=== PATIENT | male | born 1980 | race African-American/Black ===

== ENCOUNTER 2016-07-28 09:42 | Emergency (ER) | payer SELFPAY ==
[~2016-07-28] VITALS: Ht 180.3 cm; Wt 63.5 kg
--- NOTE | 2016-07-28 10:19 | PHYS DOC ---
Past Medical History Past Medical History: No Pertinent History Past Surgical History: No Surgical History Alcohol Use: Rarely Drug Use: None Adult General Chief Complaint Chief Complaint: ABDOMINAL PAIN HPI HPI Patient is a 36 year old male presenting to the emergency department for evaluation of diffuse upper abdominal pain that has been going on for approximately one week. As it causes him nonbloody nonbilious emesis but he has been having normal bowel movements. He denies any dysuria hematuria or testicular pain. Pain is sharp and achy and is worse after eating and drinking and says he has a difficult time holding anything down said he has basically not been eating much for the past several days. He feels diffusely weak with low energy. Patient admits that he drinks alcohol daily approximately 6 beers a day and smokes cigarettes as well but does not use any drugs. Patient denies any prior abdominal surgeries. Review of Systems Review of Systems Constitutional: Denies fever or chills [] Eyes: Denies change in visual acuity, redness, or eye pain [] HENT: Denies nasal congestion or sore throat [] Respiratory: Denies cough or shortness of breath [] Cardiovascular: No additional information not addressed in HPI [] GI: + abdominal pain, nausea, vomiting. No bloody stools or diarrhea [] : Denies dysuria or hematuria [] Musculoskeletal: Denies back pain or joint pain [] Integument: Denies rash or skin lesions [] Neurologic: Denies headache, focal weakness or sensory changes [] Current Medications Current Medications Current Medications Medications (Trade) Dose Ordered Sig/Will Start Time Stop Time Status Last Admin Dose Admin Info (Do NOT chart on this entry -- for MONITORING) 1 each PRN DAILY PRN 07/28/16 11:00 07/30/16 10:59 Iohexol (Omnipaque 300 Mg/ml) 75 ml 1X ONCE 07/28/16 11:00 07/28/16 11:01 DC 07/28/16 11:17 75 ML Morphine Sulfate 5 mg 1X ONCE 07/28/16 10:30 07/28/16 10:31 DC 07/28/16 10:31 5 MG Multi-Ingredient Mouthwash/Gargle (Gi Cocktail Single Dose) 15 ml 1X ONCE 07/28/16 10:30 07/28/16 10:31 DC 07/28/16 10:31 15 ML Ondansetron HCl (Zofran) 8 mg 1X ONCE 07/28/16 10:30 07/28/16 10:31 DC 07/28/16 10:30 8 MG Pantoprazole Sodium (Protonix Vial) 40 mg 1X ONCE 07/28/16 10:30 07/28/16 10:31 DC 07/28/16 10:31 40 MG Sodium Chloride 1,000 ml @ 1,000 mls/hr 1X ONCE 07/28/16 10:30 07/28/16 11:29 DC 07/28/16 10:31 1,000 MLS/HR Allergies Allergies Allergies Coded Allergies Type Severity Reaction Last Updated Verified No Known Drug Allergies 07/21/14 No Physical Exam Physical Exam Constitutional: Well developed, well nourished, no acute distress, non-toxic appearance. [] HENT: Normocephalic, atraumatic, bilateral external ears normal, oropharynx moist, no oral exudates, nose normal. [] Eyes: PERRLA, EOMI, conjunctiva injected, no discharge. [] Neck: Normal range of motion, no tenderness, supple, no stridor. [] Cardiovascular:Heart rate regular rhythm, no murmur [] Lungs & Thorax: Bilateral breath sounds clear to auscultation [] Abdomen: Bowel sounds normal, soft, RUQ, epigastric, and LUQ tenderness, no rebound or guarding, no masses, no pulsatile masses. [] Skin: Warm, dry, no erythema, no rash. [] Back: No tenderness, no CVA tenderness. [] Extremities: No tenderness, no cyanosis, no clubbing, ROM intact, no edema. [] Neurologic: Alert and oriented X 3, normal motor function, normal sensory function, no focal deficits noted. [] Current Patient Data Vital Signs Vital Signs Date Time Temp Pulse Resp B/P (MAP) Pulse Ox O2 Delivery O2 Flow Rate FiO2 07/28/16 11:30 57 18 123/78 (93) 98 Room Air 07/28/16 10:00 98.5 98.5 Lab Values Laboratory Tests Test 07/28/16 10:15 07/28/16 10:30 White Blood Count 5.8 x10^3/uL (4.0-11.0) Red Blood Count 4.93 x10^6/uL (4.30-5.70) Hemoglobin 15.5 g/dL (13.0-17.5) Hematocrit 43.9 % (39.0-53.0) Mean Corpuscular Volume 89 fL (79-100) Mean Corpuscular Hemoglobin 31 pg (25-35) Mean Corpuscular Hemoglobin Concent 35 g/dL (31-37) Red Cell Distribution Width 13.2 % (11.5-14.5) Platelet Count 194 x10^3/uL (140-400) Neutrophils (%) (Auto) 60 % (31-73) Lymphocytes (%) (Auto) 31 % (24-48) Monocytes (%) (Auto) 8 % (0-9) Eosinophils (%) (Auto) 1 % (0-3) Basophils (%) (Auto) 1 % (0-3) Neutrophils # (Auto) 3.5 x10^3uL (1.8-7.7) Lymphocytes # (Auto) 1.8 x10^3/uL (1.0-4.8) Monocytes # (Auto) 0.4 x10^3/uL (0.0-1.1) Eosinophils # (Auto) 0.1 x10^3/uL (0.0-0.7) Basophils # (Auto) 0.0 x10^3/uL (0.0-0.2) Sodium Level 139 mmol/L (136-145) Potassium Level 3.8 mmol/L (3.5-5.1) Chloride Level 104 mmol/L (98-107) Carbon Dioxide Level 29 mmol/L (21-32) Anion Gap 6 (6-14) Blood Urea Nitrogen 12 mg/dL (8-26) Creatinine 1.1 mg/dL (0.7-1.3) Estimated GFR (Cockcroft-Gault) 91.1 BUN/Creatinine Ratio 11 (6-20) Glucose Level 107 mg/dL (70-99) H Calcium Level 8.5 mg/dL (8.5-10.1) Magnesium Level 1.8 mg/dL (1.8-2.4) Total Bilirubin 1.8 mg/dL (0.2-1.0) H Aspartate Amino Transferase (AST) 25 U/L (15-37) Alanine Aminotransferase (ALT) 15 U/L (16-63) L Alkaline Phosphatase 67 U/L (46-116) Creatine Kinase 137 U/L (39-308) Total Protein 6.7 g/dL (6.4-8.2) Albumin 3.7 g/dL (3.4-5.0) Albumin/Globulin Ratio 1.2 (1.0-1.7) Lipase 64 U/L (73-393) L Ethyl Alcohol Level < 10 mg/dL (0-10) Urine Collection Type Unknown Urine Color Yellow Urine Clarity Cloudy Urine pH 8.5 Urine Specific [place] 1.025 Urine Protein Negative mg/dL (NEG-TRACE) Urine Glucose (UA) Negative mg/dL (NEG) Urine Ketones (Stick) Negative mg/dL (NEG) Urine Blood Negative (NEG) Urine Nitrite Negative (NEG) Urine Bilirubin Negative (NEG) Urine Urobilinogen Dipstick 1.0 mg/dL (0.2 mg/dL) Urine Leukocyte Esterase Negative (NEG) Urine RBC Rare /HPF (0-2) Urine WBC Occ /HPF (0-4) Urine Squamous Epithelial Cells Occ /LPF Urine Bacteria Few /HPF (0-FEW) Urine Mucus Slight /LPF Urine Opiates Screen Neg (NEG) Urine Methadone Screen Neg (NEG) Urine Barbiturates Neg (NEG) Urine Phencyclidine Screen Neg (NEG) Urine Amphetamine/Methamphetamine Neg (NEG) Urine Benzodiazepines Screen Neg (NEG) Urine Cocaine Screen Neg (NEG) Urine Cannabinoids Screen Pos (NEG) Urine Ethyl Alcohol Neg (NEG) Laboratory Tests 07/28/16 10:15 Laboratory Tests 07/28/16 10:15 EKG EKG [] Radiology/Procedures Radiology/Procedures CT scan of the abdomen and pelvis with contrast 07/28/2016 Clinical history: Epigastric pain. Technique: After the intravenous administration of 75 cc of Omnipaque 300, contiguous, 5 mm axial sections were obtained through the abdomen and pelvis. One or more of the following individualized dose reduction techniques were utilized for this study: 1. Automated exposure control. 2. Adjustment of the mA and/or kV according to patient size. 3. Use of iterative reconstruction technique. Findings: Comparison study is dated 07/24/2015. Images through the lung bases are within normal limits. The liver, spleen, pancreas, adrenal glands and right kidney are within normal limits. An oval-shaped low-attenuation structure is seen involving the mid/lower pole of the left kidney. This measures 4.4 cm in size. It likely represents a cyst. The abdominal aorta tapers normally. The gallbladder is well-distended. No free fluid or free air is seen within the abdomen. The appendix is well-visualized and is within normal limits. Images through the pelvis demonstrate the urinary bladder to be contracted. No free fluid is seen. Calcifications are seen within the pelvis consistent with phleboliths. The osseous structures are grossly intact. Impression: No acute abnormality is seen. DICTATED and SIGNED BY: ZION DURAN MD DATE: 07/28/16 1143 Course & Med Decision Making Course & Med Decision Making Most likely diagnosis is alcoholic gastritis however pancreatitis cholecystitis or other surgical causes need to be entertained so he will get labs CT symptoms treated and then reassessed. Patient's labs are unremarkable except for mildly elevated bilirubin of unknown significance. ET does not show any acute surgical pathology and patient appears well with repeat normal vital signs and physical exam. Given patient appears well with normal vital signs benign exam and he is asking to go home and tolerating by mouth fluids he'll be discharged with supportive treatment including Prilosec and [place] Zofran and PCP with GI follow-up. Patient aware and agreeable with plan for DC and verbalized understanding of the need for follow-up in the strict ER return precautions discussed worsening pain fevers vomiting or other general concerns. Dragon Disclaimer Dragon Disclaimer This electronic medical record was generated, in whole or in part, using a voice recognition dictation system. Departure Departure Impression: Primary Impression: Abdominal pain Additional Impression: Gastritis Disposition: 01 HOME, SELF-CARE Condition: GOOD Referrals: RODOLFO BOJORQUEZ MD Patient Instructions: Gastritis, Adult Additional Instructions: Drink plenty of water and Gatorade. He can use Tums and Maalox for breakthrough symptoms. Come back to the ER with any new or worsening symptoms and follow with a primary care provider and GI doctor as soon as he can. Scripts Omeprazole Magnesium (PRILOSEC OTC) 20 Mg Tablet. 1 TAB PO DAILY, #30 TAB 2 Refills Prov: NAY OLSON DO 07/28/16 Ondansetron (ZOFRAN ODT) 4 Mg Tab.rapdis 4 MG PO BID Y for NAUSEA/VOMITING, #14 TAB Prov: NAY OLSON DO 07/28/16 Hydrocodone/Apap 5-325 (NORCO 5-325 TABLET) 1 Each Tablet 1 TAB PO PRN Q6HRS Y for PAIN, #20 TAB 0 Refills Prov: NAY OLSON DO 07/28/16 Problem Qualifiers Primary Impression: Abdominal pain Abdominal location: epigastric Qualified Codes: R10.13 - Epigastric pain NAY OLSON DO Jul 28, 2016 10:19
[2016-07-28 10:29] LABS: BASO % 1 % (0-3); EOS % 1 % (0-3); HEMATOCRIT 43.9 % (39.0-53.0); HEMOGLOBIN 15.5 g/dL (13.0-17.5); LYMPH # 1.8 x10^3/uL (1.0-4.8); LYMPH % 31 % (24-48); MEAN CORPUSCULAR HEMOGLOBIN 31 pg (25-35); MEAN CORPUSCULAR HGB CONC 35 g/dL (31-37); MEAN CORPUSCULAR VOLUME 89 fL (79-100); MONO % 8 % (0-9); NEUT % 60 % (31-73); PLATELET COUNT 194 x10^3/uL (140-400); RED BLOOD COUNT 4.93 x10^6/uL (4.30-5.70); RED CELL DISTRIBUTION WIDTH 13.2 % (11.5-14.5); WHITE BLOOD COUNT 5.8 x10^3/uL (4.0-11.0)
[2016-07-28] MEDS ORDERED: PANTOPRAZOLE IV PUSH 40 MG VIAL. IVP ONE (10:30)
[2016-07-28] MEDS ORDERED: IV NORMAL SALINE 1000ML BAG 1,000 ML IV ONE (10:30)
[2016-07-28] MEDS ORDERED: LIDO:MAALOX:DONNATAL 1:1:1 15 ML SINGLE DOSE SWSW ONE (10:30)
[2016-07-28] MEDS ORDERED: ONDANSETRON PF 4 MG/2 ML VIAL. IV ONE (10:30)
[2016-07-28] MEDS ORDERED: MORPHINE SULFATE 10 MG/ML VIAL. IV ONE (10:30)
[2016-07-28 10:45] LABS: BILIRUBIN,URINE NEGATIVE (NEG); GLUCOSE,URINE NEGATIVE (NEG); NITRITE,URINE NEGATIVE (NEG); PH,URINE 8.5; PROTEIN,URINE NEGATIVE (NEG-TRACE)
[2016-07-28 10:47] LABS: CALCIUM 8.5 mg/dL (8.5-10.1); CREATININE 1.1 mg/dL (0.7-1.3); GFR 91.1; POTASSIUM 3.8 mmol/L (3.5-5.1)
[2016-07-28 11:00] LABS: ALBUMIN 3.7 g/dL (3.4-5.0); ALBUMIN/GLOBULIN RATIO 1.2 (1.0-1.7); MAGNESIUM 1.8 mg/dL (1.8-2.4); TOTAL BILIRUBIN 1.8 mg/dL (0.2-1.0); TOTAL PROTEIN 6.7 g/dL (6.4-8.2)
[2016-07-28] MEDS ORDERED: IOHEXOL 300 MG/ML 75 ML VIAL IV ONE (11:00)
[2016-07-28] MEDS ORDERED: CONTRAST GIVEN MC PRN (11:00)
[2016-07-28 11:08] LABS: BACTERIA,URINE FEW /HPF (0-FEW); RBC,URINE RARE /HPF (0-2); SQUAMOUS EPITHELIAL CELL,UR OCC /LPF; WBC,URINE OCC /HPF (0-4)
[2016-07-28 11:16] LABS: BARBITURATES NEG (NEG); BENZODIAZEPINES NEG (NEG); CANNABINOIDS POS (NEG); COCAINE NEG (NEG); METHADONE NEG (NEG); OPIATES NEG (NEG); PHENCYCLIDINE NEG (NEG)
--- NOTE | 2016-07-28 11:56 | RAD ---
CT scan of the abdomen and pelvis with contrast 07/28/2016 Clinical history: Epigastric pain. Technique: After the intravenous administration of 75 cc of Omnipaque 300, contiguous, 5 mm axial sections were obtained through the abdomen and pelvis. One or more of the following individualized dose reduction techniques were utilized for this study: 1. Automated exposure control. 2. Adjustment of the mA and/or kV according to patient size. 3. Use of iterative reconstruction technique. Findings: Comparison study is dated 07/24/2015. Images through the lung bases are within normal limits. The liver, spleen, pancreas, adrenal glands and right kidney are within normal limits. An oval-shaped low-attenuation structure is seen involving the mid/lower pole of the left kidney. This measures 4.4 cm in size. It likely represents a cyst. The abdominal aorta tapers normally. The gallbladder is well-distended. No free fluid or free air is seen within the abdomen. The appendix is well-visualized and is within normal limits. Images through the pelvis demonstrate the urinary bladder to be contracted. No free fluid is seen. Calcifications are seen within the pelvis consistent with phleboliths. The osseous structures are grossly intact. Impression: No acute abnormality is seen.
[2016-07-28 11:57] VITALS: BP 119/77
[2016-07-28] MEDS ORDERED: HYDR-971 PO (12:10)
[2016-07-28] MEDS ORDERED: OMEP20TA63 PO (12:10)
[2016-07-28] MEDS ORDERED: ONDA4TAB10 PO (12:10)
== END 2016-07-28 12:15 | disposition home or self-care (01) ==
LOC: ER 09:45
DX: K29.70 Gastritis, unspecified, without bleeding (principal); F17.210 Nicotine dependence, cigarettes, uncomplicated; F10.10 Alcohol abuse, uncomplicated
CPT/HCPCS: 36415; 74177; 80053; 80305; 80320; 81001; 82550; 83690; 83735; 85027; 96361; 96374; 96375; 99285; C9113; J2270; J2405; J7030; Q9967; G0480; G0481

== ENCOUNTER 2017-11-01 08:23 | Inpatient (IN) | payer SELFPAY ==
[~2017-11-01] VITALS: Ht 180.3 cm; Wt 63.5 kg
[~2017-11-01 08:23] MED LIST: HYDR-971 PO; OMEP20TA63 PO; ONDA4TAB10 PO
[2017-11-01] MEDS ORDERED: MORPHINE SULFATE 4 MG/ML VIAL. IV ONE ×2 (09:00→10:30)
[2017-11-01] MEDS ORDERED: IV NORMAL SALINE 1000ML BAG 1,000 ML IV ONE (09:00)
--- NOTE | 2017-11-01 09:04 | PHYS DOC ---
Past Medical History Past Medical History: No Pertinent History Past Surgical History: No Surgical History Alcohol Use: Rarely Drug Use: None Adult General Chief Complaint Chief Complaint: INSECT BITE HPI HPI 37-year-old male presents to ER with 2 day history of left-sided testicular and scrotal pain with swelling. Patient has concerns of possible insect bite denying finding any insect. Patient reports he has had a fever denying checking his temperature. He denies any penile discharge or urinary symptoms. Denies previous STDs or infections. Patient reports symptoms have been gradually worsening and he has been taking Tylenol for pain with minimal relief. Patient reports generalized fatigue. Patient reports at times when pain increases he has been having intermittent chest pain denying any shortness of air or palpitations. Review of Systems Review of Systems Constitutional: Reports fever and chills. Reports generalized fatigue Eyes: Denies change in visual acuity, redness, or eye pain [] HENT: Denies nasal congestion or sore throat [] Respiratory: Denies cough or shortness of breath [] Cardiovascular: Reports intermittent chest pain. Denies palpitations GI: Denies abdominal pain, nausea, vomiting, bloody stools or diarrhea [] : Denies dysuria or hematuria. Reports left testicular and scrotal pain with swelling. Reports pain and swelling radiates into left groin Musculoskeletal: Denies back pain or joint pain [] Integument: Reports small sores lt side scrotum-- denies drainage Neurologic: Denies headache, focal weakness or sensory changes [] All other systems were reviewed and found to be within normal limits, except as documented in this note. Current Medications Current Medications Current Medications Medications (Trade) Dose Ordered Sig/Will Start Time Stop Time Status Last Admin Dose Admin Morphine Sulfate (Morphine Sulfate) 4 mg PRN Q2HR PRN 11/01/17 11:45 11/02/17 11:44 Ondansetron HCl (Zofran) 4 mg PRN Q8HRS PRN 11/01/17 11:45 11/02/17 11:44 Piperacillin Sod/ Tazobactam Sod 3.375 gm/Sodium Chloride 50 ml @ 100 mls/hr 1X ONCE 11/01/17 10:15 11/01/17 10:44 DC 11/01/17 10:39 100 MLS/HR Sodium Chloride 1,000 ml @ 1,000 mls/hr 1X ONCE 11/01/17 09:00 11/01/17 09:59 DC 11/01/17 09:48 1,000 MLS/HR Allergies Allergies Allergies Coded Allergies Type Severity Reaction Last Updated Verified No Known Drug Allergies 07/21/14 No Physical Exam Physical Exam Constitutional: Well developed, well nourished, no acute distress, non-toxic appearance. [] HENT: Normocephalic, atraumatic, bilateral external ears normal, oropharynx moist, no oral exudates, nose normal. [] Eyes: PERRLA, EOMI, conjunctiva normal, no discharge. [] Neck: Normal range of motion, no tenderness, supple, no stridor. [] Cardiovascular:Heart rate regular rhythm, no murmur [] Lungs & Thorax: Bilateral breath sounds clear to auscultation [] Abdomen: Bowel sounds normal, soft, no tenderness, no masses, no pulsatile masses. [] Skin: Warm, dry, no erythema, no rash. [] Back: No tenderness, no CVA tenderness. [] Extremities: No tenderness, no cyanosis, no clubbing, ROM intact, no edema. [] Neurologic: Alert and oriented X 3, normal motor function, normal sensory function, no focal deficits noted. [] Psychologic: Affect normal, judgement normal, mood normal. [] Current Patient Data Vital Signs Vital Signs Date Time Temp Pulse Resp B/P (MAP) Pulse Ox O2 Delivery O2 Flow Rate FiO2 11/01/17 09:39 99 Room Air 11/01/17 08:45 99.8 95 20 130/65 (86) 99.8 Lab Values Laboratory Tests Test 11/01/17 09:00 White Blood Count 14.0 x10^3/uL (4.0-11.0) H Red Blood Count 4.94 x10^6/uL (4.30-5.70) Hemoglobin 15.4 g/dL (13.0-17.5) Hematocrit 43.7 % (39.0-53.0) Mean Corpuscular Volume 88 fL (79-100) Mean Corpuscular Hemoglobin 31 pg (25-35) Mean Corpuscular Hemoglobin Concent 35 g/dL (31-37) Red Cell Distribution Width 13.1 % (11.5-14.5) Platelet Count 170 x10^3/uL (140-400) Neutrophils (%) (Auto) 79 % (31-73) H Lymphocytes (%) (Auto) 10 % (24-48) L Monocytes (%) (Auto) 10 % (0-9) H Eosinophils (%) (Auto) 1 % (0-3) Basophils (%) (Auto) 1 % (0-3) Neutrophils # (Auto) 11.1 x10^3uL (1.8-7.7) H Lymphocytes # (Auto) 1.3 x10^3/uL (1.0-4.8) Monocytes # (Auto) 1.4 x10^3/uL (0.0-1.1) H Eosinophils # (Auto) 0.2 x10^3/uL (0.0-0.7) Basophils # (Auto) 0.1 x10^3/uL (0.0-0.2) Sodium Level 138 mmol/L (136-145) Potassium Level 4.0 mmol/L (3.5-5.1) Chloride Level 100 mmol/L (98-107) Carbon Dioxide Level 27 mmol/L (21-32) Anion Gap 11 (6-14) Blood Urea Nitrogen 13 mg/dL (8-26) Creatinine 1.0 mg/dL (0.7-1.3) Estimated GFR (Cockcroft-Gault) 101.2 BUN/Creatinine Ratio 13 (6-20) Glucose Level 93 mg/dL (70-99) Lactic Acid Level 0.5 mmol/L (0.4-2.0) Calcium Level 8.6 mg/dL (8.5-10.1) Magnesium Level 1.9 mg/dL (1.8-2.4) Total Bilirubin 1.9 mg/dL (0.2-1.0) H Aspartate Amino Transferase (AST) 17 U/L (15-37) Alanine Aminotransferase (ALT) 15 U/L (16-63) L Alkaline Phosphatase 105 U/L (46-116) Troponin I Quantitative < 0.017 ng/mL (0.000-0.055) Total Protein 7.3 g/dL (6.4-8.2) Albumin 3.9 g/dL (3.4-5.0) Albumin/Globulin Ratio 1.1 (1.0-1.7) Laboratory Tests 11/01/17 09:00 Laboratory Tests 11/01/17 09:00 EKG EKG [] Radiology/Procedures Radiology/Procedures [] Course & Med Decision Making Course & Med Decision Making Pertinent Labs and Imaging studies reviewed. (See chart for details) [] Dragon Disclaimer Dragon Disclaimer This electronic medical record was generated, in whole or in part, using a voice recognition dictation system. Departure Departure Impression: Primary Impression: Left hydrocele Additional Impression: Swelling of scrotum Disposition: ADMITTED INPATIENT Admitting Physician: Alxea Anna Referrals: NO PCP (PCP) Problem Qualifiers LEON GUEVARA [employer]PER[employer] Nov 01, 2017 09:04
[2017-11-01 09:14] LABS: BASO # 0.1 x10^3/uL (0.0-0.2); BASO % 1 % (0-3); EOS # 0.2 x10^3/uL (0.0-0.7); EOS % 1 % (0-3); HEMATOCRIT 43.7 % (39.0-53.0); HEMOGLOBIN 15.4 g/dL (13.0-17.5); LYMPH # 1.3 x10^3/uL (1.0-4.8); LYMPH % 10 % (24-48); MEAN CORPUSCULAR HEMOGLOBIN 31 pg (25-35); MEAN CORPUSCULAR HGB CONC 35 g/dL (31-37); MEAN CORPUSCULAR VOLUME 88 fL (79-100); MONO # 1.4 x10^3/uL (0.0-1.1); MONO % 10 % (0-9); NEUT # 11.1 x10^3uL (1.8-7.7); NEUT % 79 % (31-73); PLATELET COUNT 170 x10^3/uL (140-400); RED BLOOD COUNT 4.94 x10^6/uL (4.30-5.70); RED CELL DISTRIBUTION WIDTH 13.1 % (11.5-14.5)
[2017-11-01 09:29] LABS: CALCIUM 8.6 mg/dL (8.5-10.1); GFR 101.2
[2017-11-01] MEDS ORDERED: ONDANSETRON PF 4 MG/2 ML VIAL. IV ONE (09:30)
--- NOTE | 2017-11-01 09:35 | RAD ---
Scrotal ultrasound, 11/01/2017: HISTORY: Left testicular/groin pain, possible spider bite The right testicle measures 4.9 x 3.8 x 3.1 cm while the left testicle measures 4.6 x 3.0 x 2.5 cm. No testicular mass is seen. Symmetric blood flow is present within the testicles. No epididymal abnormality is seen. There is a small left hydrocele. The scrotal wall is thickened, primarily on the left. No abnormal focal fluid collection is seen. At the left groin level there is an enlarged 2.7 x 1.3 x 1.36 cm lymph node which demonstrates hyperemia. IMPRESSION: 1. No testicular abnormality is detected. 2. Small left hydrocele. 3. Left scrotal wall thickening. 4. Mildly enlarged hyperemic left inguinal lymph node.The findings suggest a local inflammatory process such as cellulitis, perhaps related to the history of an insect bite. Electronically signed by: Ghassan Sawyer MD (11/01/2017 9:32 AM) [facility]
--- NOTE | 2017-11-01 09:39 | EKG ---
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
[2017-11-01 09:42] LABS: ALBUMIN 3.9 g/dL (3.4-5.0); ALBUMIN/GLOBULIN RATIO 1.1 (1.0-1.7); MAGNESIUM 1.9 mg/dL (1.8-2.4); TOTAL BILIRUBIN 1.9 mg/dL (0.2-1.0); TOTAL PROTEIN 7.3 g/dL (6.4-8.2)
[2017-11-01] MEDS ORDERED: PIPERACILLIN/TAZOBACTAM 3.375 GM in IV NORMAL SALINE 50ML 50 ML IV ONE (10:15)
[2017-11-01 11:37] LABS: BILIRUBIN,URINE NEGATIVE (NEG); CLARITY,URINE CLEAR; COLOR,URINE YELLOW; NITRITE,URINE NEGATIVE (NEG); PH,URINE 6.5; PROTEIN,URINE NEGATIVE (NEG-TRACE)
[2017-11-01] MEDS ORDERED: ONDANSETRON PF 4 MG/2 ML VIAL. IV PRN ×2 (11:45→12:00)
[2017-11-01] MEDS ORDERED: MORPHINE SULFATE 4 MG/ML VIAL. IV PRN (11:45)
[2017-11-01 11:47] LABS: SQUAMOUS EPITHELIAL CELL,UR FEW /LPF
[2017-11-01 11:49] LABS: BACTERIA,URINE FEW /HPF (0-FEW)
[2017-11-01 11:51] LABS: TRICHOMONAS,URINE PRESENT
[2017-11-01] MEDS ORDERED: PIP/TAZO PER PHARMACY MC PRN (12:00)
[2017-11-01] MEDS ORDERED: ACETAMINOPHEN 500 MG TABLET PO PRN (12:00)
[2017-11-01] MEDS ORDERED: ONDANSETRON ODT 4 MG TAB.RAPDIS. PO PRN (12:15)
[2017-11-01] MEDS: NAPROXEN 500 MG TABLET PO SCH ×2 (12:56→21:12)
[2017-11-01] MEDS: oxyCODONE/APAP 5/325 1 TAB TABLET PO PRN ×3 (12:56→21:12)
--- NOTE | 2017-11-01 13:07 | PDOC1 ---
History and Physical Date of Admission Date of Admission DATE: 11/01/17 TIME: 13:02 Identification/Chief Complaint Chief Complaint scrotal pain and swelling Source Source: Caregiver, Chart review, Patient History of Present Illness History of Present Illness 37-year-old male with no past medical history, does not take any meds at home, no previous surgery, no known drug allergies, nonsmoker nonalcohol drinker, denies recreational drugs, 4-5 day history of scrotal pain and swelling, very tender to touch just on mild exam or mild elevation / palpation. Ultrasound shows below 1. No testicular abnormality is detected. 2. Small left hydrocele. 3. Left scrotal wall thickening. 4. Mildly enlarged hyperemic left inguinal lymph node.The findings suggest a local inflammatory process such as cellulitis, perhaps related to the history of an insect bite. Subjective fevers at home, WBC 14, low-grade temperature at the emergency room. Discussed with urology, no urologic interventions IV antibiotics, we did consult ID and ESR is pending Total bili is 1.9, patient denies any abdominal pain Past Medical History Cardiovascular: No pertinent hx Pulmonary: No pertinent hx GI: No pertinent hx Heme/Onc: No pertinent hx Hepatobiliary: No pertinent hx Psych: No pertinent hx Rheumatologic: No pertinent hx Infectious disease: No pertinent hx ENT: No pertinent hx Renal/: No pertinent hx Endocrine: No pertinent hx Dermatology: No pertinent hx Past Surgical History Past Surgical History: No pertinent history Family History Family History: No Significant Social History Smoke: No ALCOHOL: none Drugs: None Current Problem List Problem List Problems Medical Problems: (1) Left hydrocele Status: Acute (2) Swelling of scrotum Status: Acute Current Medications Current Medications Current Medications Sodium Chloride 1,000 ml @ 1,000 mls/hr 1X ONCE IV Last administered on at 09:48; Start 11/01/17 at 09:00; Stop 11/01/17 at 09:59; Status DC Morphine Sulfate (Morphine Sulfate) 4 mg 1X ONCE IV Last administered on at 09:39; Start 11/01/17 at 09:00; Stop 11/01/17 at 09:01; Status DC Ondansetron HCl (Zofran) 4 mg 1X ONCE IV Last administered on 11/01/17at 09:40 ; Start 11/01/17 at 09:30; Stop 11/01/17 at 09:31; Status DC Piperacillin Sod/ Tazobactam Sod 3.375 gm/Sodium Chloride 50 ml @ 100 mls/hr 1X ONCE IV Last administered on 11/01/17at 10:39; Start 11/01/17 at 10:15; Stop 11/01/17 at 10:44; Status DC Morphine Sulfate (Morphine Sulfate) 4 mg 1X ONCE IV Last administered on at 12:30; Start 11/01/17 at 10:30; Stop 11/01/17 at 10:31; Status DC Ondansetron HCl (Zofran) 4 mg PRN Q8HRS PRN IV NAUSEA/VOMITING; Start 11/01/17 at 11:45; Stop 11/01/17 at 12:01; Status DC Morphine Sulfate (Morphine Sulfate) 4 mg PRN Q2HR PRN IV PAIN; Start 11/01/17 at 11:45; Stop 11/02/17 at 11:44 Ondansetron HCl (Zofran) 4 mg PRN Q6HRS PRN IV NAUSEA/VOMITING; Start 11/01/17 at 12:00 Piperacillin Sod/ Tazobactam Sod (Zosyn Per Pharmacy) 1 each PRN DAILY PRN [facility] SEE COMMENTS; Start 11/01/17 at 12:00; Status UNV Oxycodone/ Acetaminophen (Percocet 5/325) 1 tab PRN Q4HRS PRN PO SEVERE PAIN; Start 11/01/17 at 12:00 Acetaminophen (Tylenol) 500 mg PRN Q6HRS PRN PO MILD PAIN / TEMP; Start at 12:00 Naproxen (Naprosyn) 500 mg BID PO ; Start 11/01/17 at 12:00 Acetaminophen/ Hydrocodone Bitart (Lortab 5/325) 1 tab PRN Q6HRS PRN PO MODERATE PAIN; Start 11/01/17 at 12:15 Ondansetron HCl (Zofran Odt) 4 mg BID PRN PO NAUSEA/VOMITING; Start 11/01/17 at 12:15 Pantoprazole Sodium (Protonix) 40 mg DAILYAC PO ; Start 11/02/17 at 07:30 Piperacillin Sod/ Tazobactam Sod 3.375 gm/Sodium Chloride 50 ml @ 100 mls/hr Q6HRS IV ; Start 11/01/17 at 18:00 Active Scripts Active Prilosec Otc (Omeprazole Magnesium) 20 Mg Tablet.dr 1 Tab PO DAILY Zofran Odt (Ondansetron) 4 Mg Tab.rapdis 4 Mg PO BID PRN [place] 5-325 Tablet (Acetaminophen/Hydrocodone Bitart) 1 Each Tablet 1 Tab PO PRN Q6HRS PRN Allergies Allergies: Coded Allergies: No Known Drug Allergies (Unverified , 07/21/14) ROS Review of System As per history of present illness, the rest of ROS 14 point is negative Physical Exam General: Alert, Oriented X3, Cooperative, No acute distress HEENT: Atraumatic, PERRLA, EOMI Lungs: Clear to auscultation, Normal air movement Heart: S1S2, RRR, no thrills, no rubs, no gallops, no murmurs Cardiovascular: S1, S2 Abdomen: Normal bowel sounds, Soft, No tenderness, No hepatosplenomegaly, No masses Male Genitals Exam: other (scrotum is enlarged, hard to appreciate redness because of skin color but significant pain on mild palpation or attempted to elevate the scrotumOpen no open skin lesionsSome thickened or induration skin around the area) Rectal Exam: not examined PELVIC: Nml ext genitalia Extremities: No clubbing, No cyanosis, No edema, Normal pulses, No tenderness/ swelling Skin: No rashes, No breakdown, No significant lesion Neuro: Normal gait, Normal speech, Strength at 5/5 X4 ext, Normal tone, Sensation intact, Cranial nerves 3-12 NL, Reflexes 2+ Psych/Mental Status: Mental status NL, Mood NL Vitals Vitals Vital Signs Date Time Temp Pulse Resp B/P (MAP) Pulse Ox O2 Delivery O2 Flow Rate FiO2 11/01/17 12:30 99 11/01/17 09:39 Room Air 11/01/17 08:45 99.8 95 20 130/65 (86) 99.8 Labs Labs Laboratory Tests Test 11/01/17 09:00 11/01/17 10:30 White Blood Count 14.0 x10^3/uL (4.0-11.0) Red Blood Count 4.94 x10^6/uL (4.30-5.70) Hemoglobin 15.4 g/dL (13.0-17.5) Hematocrit 43.7 % (39.0-53.0) Mean Corpuscular Volume 88 fL (79-100) Mean Corpuscular Hemoglobin 31 pg (25-35) Mean Corpuscular Hemoglobin Concent 35 g/dL (31-37) Red Cell Distribution Width 13.1 % (11.5-14.5) Platelet Count 170 x10^3/uL (140-400) Neutrophils (%) (Auto) 79 % (31-73) Lymphocytes (%) (Auto) 10 % (24-48) Monocytes (%) (Auto) 10 % (0-9) Eosinophils (%) (Auto) 1 % (0-3) Basophils (%) (Auto) 1 % (0-3) Neutrophils # (Auto) 11.1 x10^3uL (1.8-7.7) Lymphocytes # (Auto) 1.3 x10^3/uL (1.0-4.8) Monocytes # (Auto) 1.4 x10^3/uL (0.0-1.1) Eosinophils # (Auto) 0.2 x10^3/uL (0.0-0.7) Basophils # (Auto) 0.1 x10^3/uL (0.0-0.2) Sodium Level 138 mmol/L (136-145) Potassium Level 4.0 mmol/L (3.5-5.1) Chloride Level 100 mmol/L (98-107) Carbon Dioxide Level 27 mmol/L (21-32) Anion Gap 11 (6-14) Blood Urea Nitrogen 13 mg/dL (8-26) Creatinine 1.0 mg/dL (0.7-1.3) Estimated GFR (Cockcroft-Gault) 101.2 BUN/Creatinine Ratio 13 (6-20) Glucose Level 93 mg/dL (70-99) Lactic Acid Level 0.5 mmol/L (0.4-2.0) Calcium Level 8.6 mg/dL (8.5-10.1) Magnesium Level 1.9 mg/dL (1.8-2.4) Total Bilirubin 1.9 mg/dL (0.2-1.0) Aspartate Amino Transf (AST/SGOT) 17 U/L (15-37) Alanine Aminotransferase (ALT/SGPT) 15 U/L (16-63) Alkaline Phosphatase 105 U/L (46-116) Troponin I Quantitative < 0.017 ng/mL (0.000-0.055) Total Protein 7.3 g/dL (6.4-8.2) Albumin 3.9 g/dL (3.4-5.0) Albumin/Globulin Ratio 1.1 (1.0-1.7) Urine Collection Type Void Urine Color Yellow Urine Clarity Clear Urine pH 6.5 Urine Specific [place] 1.020 Urine Protein Negative mg/dL (NEG-TRACE) Urine Glucose (UA) Negative mg/dL (NEG) Urine Ketones (Stick) 15 mg/dL (NEG) Urine Blood Negative (NEG) Urine Nitrite Negative (NEG) Urine Bilirubin Negative (NEG) Urine Urobilinogen Dipstick 1.0 mg/dL (0.2 mg/dL) Urine Leukocyte Esterase Negative (NEG) Urine RBC 3-5 /HPF (0-2) Urine WBC 1-4 /HPF (0-4) Urine Squamous Epithelial Cells Few /LPF Urine Bacteria Few /HPF (0-FEW) Urine Mucus Marked /LPF Urine Trichomonas Present Laboratory Tests Test 11/01/17 09:00 11/01/17 10:30 White Blood Count 14.0 x10^3/uL (4.0-11.0) Red Blood Count 4.94 x10^6/uL (4.30-5.70) Hemoglobin 15.4 g/dL (13.0-17.5) Hematocrit 43.7 % (39.0-53.0) Mean Corpuscular Volume 88 fL (79-100) Mean Corpuscular Hemoglobin 31 pg (25-35) Mean Corpuscular Hemoglobin Concent 35 g/dL (31-37) Red Cell Distribution Width 13.1 % (11.5-14.5) Platelet Count 170 x10^3/uL (140-400) Neutrophils (%) (Auto) 79 % (31-73) Lymphocytes (%) (Auto) 10 % (24-48) Monocytes (%) (Auto) 10 % (0-9) Eosinophils (%) (Auto) 1 % (0-3) Basophils (%) (Auto) 1 % (0-3) Neutrophils # (Auto) 11.1 x10^3uL (1.8-7.7) Lymphocytes # (Auto) 1.3 x10^3/uL (1.0-4.8) Monocytes # (Auto) 1.4 x10^3/uL (0.0-1.1) Eosinophils # (Auto) 0.2 x10^3/uL (0.0-0.7) Basophils # (Auto) 0.1 x10^3/uL (0.0-0.2) Sodium Level 138 mmol/L (136-145) Potassium Level 4.0 mmol/L (3.5-5.1) Chloride Level 100 mmol/L (98-107) Carbon Dioxide Level 27 mmol/L (21-32) Anion Gap 11 (6-14) Blood Urea Nitrogen 13 mg/dL (8-26) Creatinine 1.0 mg/dL (0.7-1.3) Estimated GFR (Cockcroft-Gault) 101.2 BUN/Creatinine Ratio 13 (6-20) Glucose Level 93 mg/dL (70-99) Lactic Acid Level 0.5 mmol/L (0.4-2.0) Calcium Level 8.6 mg/dL (8.5-10.1) Magnesium Level 1.9 mg/dL (1.8-2.4) Total Bilirubin 1.9 mg/dL (0.2-1.0) Aspartate Amino Transf (AST/SGOT) 17 U/L (15-37) Alanine Aminotransferase (ALT/SGPT) 15 U/L (16-63) Alkaline Phosphatase 105 U/L (46-116) Troponin I Quantitative < 0.017 ng/mL (0.000-0.055) Total Protein 7.3 g/dL (6.4-8.2) Albumin 3.9 g/dL (3.4-5.0) Albumin/Globulin Ratio 1.1 (1.0-1.7) Urine Collection Type Void Urine Color Yellow Urine Clarity Clear Urine pH 6.5 Urine Specific [place] 1.020 Urine Protein Negative mg/dL (NEG-TRACE) Urine Glucose (UA) Negative mg/dL (NEG) Urine Ketones (Stick) 15 mg/dL (NEG) Urine Blood Negative (NEG) Urine Nitrite Negative (NEG) Urine Bilirubin Negative (NEG) Urine Urobilinogen Dipstick 1.0 mg/dL (0.2 mg/dL) Urine Leukocyte Esterase Negative (NEG) Urine RBC 3-5 /HPF (0-2) Urine WBC 1-4 /HPF (0-4) Urine Squamous Epithelial Cells Few /LPF Urine Bacteria Few /HPF (0-FEW) Urine Mucus Marked /LPF Urine Trichomonas Present VTE Prophylaxis Ordered VTE Prophylaxis Devices: Yes VTE Pharmacological Prophylaxi: Yes Assessment/Plan Assessment/Plan scrotal cellulitis, unlikely gavino's gangrene Small left hydrocele Left scrotal wall thickening Left inguinal lymph node enlargement PLAn: admit 2 MN I Did continue IV Zosyn started at ER Urology consulted ID consulted Monitor the leukocytosis Regular diet, no surgical plans Seen at ER, discussed with mid-level provider MILVIA SMITH MD Nov 01, 2017 13:07
--- NOTE | 2017-11-01 13:10 | PDOC2 ---
UROLOGY CONSULT Date of Consult Date of Consult DATE: 11/01/17 TIME: 12:48 Reason for Consult Reason for Consult: scrotal swelling/pain Source Source: Patient History of Present Illness Reason for Visit: 37 yo M with no significant PMH who presents with progressive worsening scrotal swelling and pain that her first noticed on Thursday. No clear inciting events and has never happened before. Did have a small amount of purulent drainage on Thursday. Endorses chills overnight, but denies fevers, or other complaints. In ED: afebrile, WBC 14, LA 0.5, UA+ for trichomonas, US with thickened left hemiscrotum, small reactive hydrocele, inflamed inguinal lymph node, no drainable fluid collections. Current Medications Current Medications Current Medications Acetaminophen (Tylenol) 500 mg PRN Q6HRS PRN PO MILD PAIN / TEMP; Start at 12:00 Acetaminophen/ Hydrocodone Bitart (Lortab 5/325) 1 tab PRN Q6HRS PRN PO MODERATE PAIN; Start 11/01/17 at 12:15 Morphine Sulfate (Morphine Sulfate) 4 mg 1X ONCE IV Last administered on at 09:39; Start 11/01/17 at 09:00; Stop 11/01/17 at 09:01; Status DC Morphine Sulfate (Morphine Sulfate) 4 mg 1X ONCE IV Last administered on at 12:30; Start 11/01/17 at 10:30; Stop 11/01/17 at 10:31; Status DC Morphine Sulfate (Morphine Sulfate) 4 mg PRN Q2HR PRN IV PAIN; Start 11/01/17 at 11:45; Stop 11/02/17 at 11:44 Naproxen (Naprosyn) 500 mg BID PO ; Start 11/01/17 at 12:00 Ondansetron HCl (Zofran Odt) 4 mg BID PRN PO NAUSEA/VOMITING; Start 11/01/17 at 12:15 Ondansetron HCl (Zofran) 4 mg 1X ONCE IV Last administered on 11/01/17at 09:40 ; Start 11/01/17 at 09:30; Stop 11/01/17 at 09:31; Status DC Ondansetron HCl (Zofran) 4 mg PRN Q6HRS PRN IV NAUSEA/VOMITING; Start 11/01/17 at 12:00 Ondansetron HCl (Zofran) 4 mg PRN Q8HRS PRN IV NAUSEA/VOMITING; Start 11/01/17 at 11:45; Stop 11/01/17 at 12:01; Status DC Oxycodone/ Acetaminophen (Percocet 5/325) 1 tab PRN Q4HRS PRN PO SEVERE PAIN; Start 11/01/17 at 12:00 Pantoprazole Sodium (Protonix) 40 mg DAILYAC PO ; Start 11/02/17 at 07:30 Piperacillin Sod/ Tazobactam Sod (Zosyn Per Pharmacy) 1 each PRN DAILY PRN [facility] SEE COMMENTS; Start 11/01/17 at 12:00; Status UNV Piperacillin Sod/ Tazobactam Sod 3.375 gm/Sodium Chloride 50 ml @ 100 mls/hr 1X ONCE IV Last administered on 11/01/17at 10:39; Start 11/01/17 at 10:15; Stop 11/01/17 at 10:44; Status DC Piperacillin Sod/ Tazobactam Sod 3.375 gm/Sodium Chloride 50 ml @ 100 mls/hr Q6HRS IV ; Start 11/01/17 at 18:00 Sodium Chloride 1,000 ml @ 1,000 mls/hr 1X ONCE IV Last administered on at 09:48; Start 11/01/17 at 09:00; Stop 11/01/17 at 09:59; Status DC Allergies Allergies: Coded Allergies: No Known Drug Allergies (Unverified , 07/21/14) ROS Review Of Systems: Pertinent positives and negatives obtained and included in the HPI Physical Exam Physical Exam: General: Pleasant, no acute distress, well groomed Eyes: conjunctiva anicteric, eyes full range of motion ENT: moist oral mucosa Neck: Trachea midline Respiratory: unlabored breathing, not using accessory muscles Cardiovascular: Normal temperature Abdomen: nontender, nondistended, no masses, enlarged inguinal LN with tenderness Skin: no rashes or skin lesions on visualized skin Psych: normal mood, affect. Alert and oriented x 3. : Circumcised phallus, orthotopic meatus, testes normal to palp, Skin on left hemiscrotum is firm, inflamed and tender. Small crust where drainage was noted. No erythema, crepitus, fluctuance or palpable fluid collections. Vitals VITALS Vital Signs Date Time Temp Pulse Resp B/P (MAP) Pulse Ox O2 Delivery O2 Flow Rate FiO2 11/01/17 12:30 99 11/01/17 09:39 Room Air 11/01/17 08:45 99.8 95 20 130/65 (86) 99.8 Labs Labs Laboratory Tests Test 11/01/17 09:00 11/01/17 10:30 White Blood Count 14.0 x10^3/uL (4.0-11.0) Red Blood Count 4.94 x10^6/uL (4.30-5.70) Hemoglobin 15.4 g/dL (13.0-17.5) Hematocrit 43.7 % (39.0-53.0) Mean Corpuscular Volume 88 fL (79-100) Mean Corpuscular Hemoglobin 31 pg (25-35) Mean Corpuscular Hemoglobin Concent 35 g/dL (31-37) Red Cell Distribution Width 13.1 % (11.5-14.5) Platelet Count 170 x10^3/uL (140-400) Neutrophils (%) (Auto) 79 % (31-73) Lymphocytes (%) (Auto) 10 % (24-48) Monocytes (%) (Auto) 10 % (0-9) Eosinophils (%) (Auto) 1 % (0-3) Basophils (%) (Auto) 1 % (0-3) Neutrophils # (Auto) 11.1 x10^3uL (1.8-7.7) Lymphocytes # (Auto) 1.3 x10^3/uL (1.0-4.8) Monocytes # (Auto) 1.4 x10^3/uL (0.0-1.1) Eosinophils # (Auto) 0.2 x10^3/uL (0.0-0.7) Basophils # (Auto) 0.1 x10^3/uL (0.0-0.2) Sodium Level 138 mmol/L (136-145) Potassium Level 4.0 mmol/L (3.5-5.1) Chloride Level 100 mmol/L (98-107) Carbon Dioxide Level 27 mmol/L (21-32) Anion Gap 11 (6-14) Blood Urea Nitrogen 13 mg/dL (8-26) Creatinine 1.0 mg/dL (0.7-1.3) Estimated GFR (Cockcroft-Gault) 101.2 BUN/Creatinine Ratio 13 (6-20) Glucose Level 93 mg/dL (70-99) Lactic Acid Level 0.5 mmol/L (0.4-2.0) Calcium Level 8.6 mg/dL (8.5-10.1) Magnesium Level 1.9 mg/dL (1.8-2.4) Total Bilirubin 1.9 mg/dL (0.2-1.0) Aspartate Amino Transf (AST/SGOT) 17 U/L (15-37) Alanine Aminotransferase (ALT/SGPT) 15 U/L (16-63) Alkaline Phosphatase 105 U/L (46-116) Troponin I Quantitative < 0.017 ng/mL (0.000-0.055) Total Protein 7.3 g/dL (6.4-8.2) Albumin 3.9 g/dL (3.4-5.0) Albumin/Globulin Ratio 1.1 (1.0-1.7) Urine Collection Type Void Urine Color Yellow Urine Clarity Clear Urine pH 6.5 Urine Specific [place] 1.020 Urine Protein Negative mg/dL (NEG-TRACE) Urine Glucose (UA) Negative mg/dL (NEG) Urine Ketones (Stick) 15 mg/dL (NEG) Urine Blood Negative (NEG) Urine Nitrite Negative (NEG) Urine Bilirubin Negative (NEG) Urine Urobilinogen Dipstick 1.0 mg/dL (0.2 mg/dL) Urine Leukocyte Esterase Negative (NEG) Urine RBC 3-5 /HPF (0-2) Urine WBC 1-4 /HPF (0-4) Urine Squamous Epithelial Cells Few /LPF Urine Bacteria Few /HPF (0-FEW) Urine Mucus Marked /LPF Urine Trichomonas Present Laboratory Tests Test 11/01/17 09:00 11/01/17 10:30 White Blood Count 14.0 x10^3/uL (4.0-11.0) Red Blood Count 4.94 x10^6/uL (4.30-5.70) Hemoglobin 15.4 g/dL (13.0-17.5) Hematocrit 43.7 % (39.0-53.0) Mean Corpuscular Volume 88 fL (79-100) Mean Corpuscular Hemoglobin 31 pg (25-35) Mean Corpuscular Hemoglobin Concent 35 g/dL (31-37) Red Cell Distribution Width 13.1 % (11.5-14.5) Platelet Count 170 x10^3/uL (140-400) Neutrophils (%) (Auto) 79 % (31-73) Lymphocytes (%) (Auto) 10 % (24-48) Monocytes (%) (Auto) 10 % (0-9) Eosinophils (%) (Auto) 1 % (0-3) Basophils (%) (Auto) 1 % (0-3) Neutrophils # (Auto) 11.1 x10^3uL (1.8-7.7) Lymphocytes # (Auto) 1.3 x10^3/uL (1.0-4.8) Monocytes # (Auto) 1.4 x10^3/uL (0.0-1.1) Eosinophils # (Auto) 0.2 x10^3/uL (0.0-0.7) Basophils # (Auto) 0.1 x10^3/uL (0.0-0.2) Sodium Level 138 mmol/L (136-145) Potassium Level 4.0 mmol/L (3.5-5.1) Chloride Level 100 mmol/L (98-107) Carbon Dioxide Level 27 mmol/L (21-32) Anion Gap 11 (6-14) Blood Urea Nitrogen 13 mg/dL (8-26) Creatinine 1.0 mg/dL (0.7-1.3) Estimated GFR (Cockcroft-Gault) 101.2 BUN/Creatinine Ratio 13 (6-20) Glucose Level 93 mg/dL (70-99) Lactic Acid Level 0.5 mmol/L (0.4-2.0) Calcium Level 8.6 mg/dL (8.5-10.1) Magnesium Level 1.9 mg/dL (1.8-2.4) Total Bilirubin 1.9 mg/dL (0.2-1.0) Aspartate Amino Transf (AST/SGOT) 17 U/L (15-37) Alanine Aminotransferase (ALT/SGPT) 15 U/L (16-63) Alkaline Phosphatase 105 U/L (46-116) Troponin I Quantitative < 0.017 ng/mL (0.000-0.055) Total Protein 7.3 g/dL (6.4-8.2) Albumin 3.9 g/dL (3.4-5.0) Albumin/Globulin Ratio 1.1 (1.0-1.7) Urine Collection Type Void Urine Color Yellow Urine Clarity Clear Urine pH 6.5 Urine Specific [place] 1.020 Urine Protein Negative mg/dL (NEG-TRACE) Urine Glucose (UA) Negative mg/dL (NEG) Urine Ketones (Stick) 15 mg/dL (NEG) Urine Blood Negative (NEG) Urine Nitrite Negative (NEG) Urine Bilirubin Negative (NEG) Urine Urobilinogen Dipstick 1.0 mg/dL (0.2 mg/dL) Urine Leukocyte Esterase Negative (NEG) Urine RBC 3-5 /HPF (0-2) Urine WBC 1-4 /HPF (0-4) Urine Squamous Epithelial Cells Few /LPF Urine Bacteria Few /HPF (0-FEW) Urine Mucus Marked /LPF Urine Trichomonas Present Assessment/Plan Assessment/Plan 37 yo M with scrotal abscess, potentially from grooming, that spontaneously drained earlier this week. Has persistent discomfort and swelling from cellulitis. Both PE and US do not identify a drainable fluid collection. Agree with empiric IV abx Recommend a single dose of metronidazole given trichomonas in urine Will continue to observe If no improvement or an abscess delcares itself we discussed bedside I&D He is consenting to the treatment plan MEHDI STALLWORTH MD Nov 01, 2017 13:10
[2017-11-01 15:00] VITALS: BP 116/63
[2017-11-01] MEDS: PIPERACILLIN/TAZOBACTAM 3.375 GM in IV NORMAL SALINE 50ML 50 ML IV SCH (18:21)
[2017-11-01 19:30] VITALS: BP 142/43
--- NOTE | 2017-11-01 22:38 | RAD ---
Abdominal ultrasound Limited: Reason for examination: Elevated total bilirubin of 1.9. No abnormality seen at the pancreas. No abnormality seen at the inferior vena cava. The liver is normal in size at 16.6 cm without a focal lesion. Gallbladder shows no cholelithiasis or sludge and no pericholecystic fluid. Common bile duct is normal in caliber at 2.7 mm. Right kidney measures 12.0 x 4.6 x 5.8 cm in greatest dimension with normal cortical medullary differentiation and good vascular flow but no evidence of hydronephrosis. IMPRESSION: No acute abnormality seen in the right upper quadrant. Electronically signed by: Rosenda Smith MD (11/01/2017 10:35 PM) [facility]
[2017-11-01 23:26] VITALS: BP 112/65
[2017-11-02] MEDS: PIPERACILLIN/TAZOBACTAM 3.375 GM in IV NORMAL SALINE 50ML 50 ML IV SCH ×2 (00:29→05:57)
[2017-11-02 03:10] VITALS: BP_SYST 114; BP_SYST 161; BP_DIAS 60; BP_DIAS 79
[2017-11-02 04:39] LABS: BASO % 0 % (0-3); EOS # 0.4 x10^3/uL (0.0-0.7); EOS % 4 % (0-3); HEMATOCRIT 38.6 % (39.0-53.0); HEMOGLOBIN 13.7 g/dL (13.0-17.5); LYMPH % 21 % (24-48); MEAN CORPUSCULAR HEMOGLOBIN 32 pg (25-35); MEAN CORPUSCULAR HGB CONC 36 g/dL (31-37); MEAN CORPUSCULAR VOLUME 89 fL (79-100); MONO # 0.9 x10^3/uL (0.0-1.1); MONO % 9 % (0-9); NEUT # 6.6 x10^3uL (1.8-7.7); NEUT % 66 % (31-73); PLATELET COUNT 165 x10^3/uL (140-400); RED BLOOD COUNT 4.34 x10^6/uL (4.30-5.70); RED CELL DISTRIBUTION WIDTH 12.7 % (11.5-14.5); WHITE BLOOD COUNT 9.9 x10^3/uL (4.0-11.0)
[2017-11-02 05:00] LABS: CALCIUM 8.3 mg/dL (8.5-10.1); GFR 101.2
[2017-11-02] MEDS: oxyCODONE/APAP 5/325 1 TAB TABLET PO PRN ×4 (05:56→20:31)
[2017-11-02 07:00] VITALS: BP 109/63
[2017-11-02] MEDS: NAPROXEN 500 MG TABLET PO SCH ×2 (09:06→20:30)
[2017-11-02] MEDS: PANTOPRAZOLE 40 MG TABLET.DR. PO SCH (09:06)
--- NOTE | 2017-11-02 09:21 | PDOC ---
SUBJECTIVE Subjective Patient resting comfortably. Pain is very much improved. OBJECTIVE Objective Physical Exam: General appearance: Alert and Oriented Head: Normocephalic, without obvious abnormality Eyes: conjunctivae/corneas clear. PERRL, EOM's intact. Fundi benign Lungs: regular respirations, non labored breathing. Pelvic: Scrotal exam: small amount of induration on the left side, just below the base of the phallus, no drainage. Slight tenderness and swelling on the left testicle, WNL on the right. Patient reports tenderness is greatly improved. Vital Signs Vital Signs Date Time Temp Pulse Resp B/P (MAP) Pulse Ox O2 Delivery O2 Flow Rate FiO2 11/02/17 07:00 97.6 61 16 109/63 (78) 98 Room Air 97.6 11/02/17 07:00 16 Room Air 11/02/17 05:56 20 97 Room Air 11/02/17 03:10 98.2 80 18 114/60 (78) 97 Room Air 98.2 11/01/17 23:26 98.1 67 18 112/65 (81) 98 Room Air 98.1 11/01/17 21:45 20 98 Room Air 11/01/17 21:15 20 98 Room Air 11/01/17 21:12 20 98 Room Air 11/01/17 20:00 Room Air 11/01/17 19:30 98.2 80 18 142/43 (76) 98 Room Air 98.2 11/01/17 18:10 97 11/01/17 17:10 18 97 Room Air 11/01/17 15:00 97.8 84 18 116/63 (80) 97 Room Air 97.8 11/01/17 14:00 Room Air 11/01/17 12:30 99 11/01/17 12:00 88 18 117/80 (92) 99 Room Air 11/01/17 11:00 82 18 122/78 (93) 99 Room Air 11/01/17 09:39 99 Room Air I & O Intake and Output 11/02/17 07:00 Intake Total 2770 ml Output Total 1 ml Balance 2769 ml Intake Oral 1720 ml IV Total 1050 ml Output Urine Total 1 ml # Voids 2 PHYSICAL EXAM Physical Exam Physical Exam: General appearance: Alert and Oriented Head: Normocephalic, without obvious abnormality Eyes: conjunctivae/corneas clear. PERRL, EOM's intact. Fundi benign Lungs: regular respirations, non labored breathing. Pelvic: Scrotal exam: small amount of induration on the left side, just below the base of the phallus, no drainage. Slight tenderness and swelling on the left testicle, WNL on the right. Patient reports tenderness is greatly improved. ASSESSMENT/PLAN Assessment/Plan Continue antibiotics. Dr. Pham recommends one more night of IV antibiotics, discharge tomorrow morning. Whenever he does go home he will need enough antibiotics to equal two weeks worth of therapy. A follow up appointment has been arranged for patient on 11/16/17 at 1500. Pt given appointment card and new patient paperwork. All questions answered. Discussed with patient to continue to observe area once or twice a day and report increased swelling, pain or areas or drainage to nursing staff. As of now, there are no identifiable areas that would benefit from surgical intervention. Will follow while in house. . COMMENT Lab Laboratory Tests Test 11/01/17 10:30 11/02/17 04:00 Urine Collection Type Void Urine Color Yellow Urine Clarity Clear Urine pH 6.5 Urine Specific [place] 1.020 Urine Protein Negative mg/dL (NEG-TRACE) Urine Glucose (UA) Negative mg/dL (NEG) Urine Ketones (Stick) 15 mg/dL (NEG) Urine Blood Negative (NEG) Urine Nitrite Negative (NEG) Urine Bilirubin Negative (NEG) Urine Urobilinogen Dipstick 1.0 mg/dL (0.2 mg/dL) Urine Leukocyte Esterase Negative (NEG) Urine RBC 3-5 /HPF (0-2) Urine WBC 1-4 /HPF (0-4) Urine Squamous Epithelial Cells Few /LPF Urine Bacteria Few /HPF (0-FEW) Urine Mucus Marked /LPF Urine Trichomonas Present White Blood Count 9.9 x10^3/uL (4.0-11.0) Red Blood Count 4.34 x10^6/uL (4.30-5.70) Hemoglobin 13.7 g/dL (13.0-17.5) Hematocrit 38.6 % (39.0-53.0) Mean Corpuscular Volume 89 fL (79-100) Mean Corpuscular Hemoglobin 32 pg (25-35) Mean Corpuscular Hemoglobin Concent 36 g/dL (31-37) Red Cell Distribution Width 12.7 % (11.5-14.5) Platelet Count 165 x10^3/uL (140-400) Neutrophils (%) (Auto) 66 % (31-73) Lymphocytes (%) (Auto) 21 % (24-48) Monocytes (%) (Auto) 9 % (0-9) Eosinophils (%) (Auto) 4 % (0-3) Basophils (%) (Auto) 0 % (0-3) Neutrophils # (Auto) 6.6 x10^3uL (1.8-7.7) Lymphocytes # (Auto) 2.0 x10^3/uL (1.0-4.8) Monocytes # (Auto) 0.9 x10^3/uL (0.0-1.1) Eosinophils # (Auto) 0.4 x10^3/uL (0.0-0.7) Basophils # (Auto) 0.0 x10^3/uL (0.0-0.2) Sodium Level 138 mmol/L (136-145) Potassium Level 4.0 mmol/L (3.5-5.1) Chloride Level 105 mmol/L (98-107) Carbon Dioxide Level 28 mmol/L (21-32) Anion Gap 5 (6-14) Blood Urea Nitrogen 13 mg/dL (8-26) Creatinine 1.0 mg/dL (0.7-1.3) Estimated GFR (Cockcroft-Gault) 101.2 Glucose Level 88 mg/dL (70-99) Calcium Level 8.3 mg/dL (8.5-10.1) GAYATHRI WHITAKER APRN Nov 02, 2017 09:21
[2017-11-02 11:00] VITALS: BP 103/62
--- NOTE | 2017-11-02 11:21 | PDOC ---
PROGRESS NOTES Chief Complaint Chief Complaint scrotal cellulitis, wo abscess Small left hydrocele Left scrotal wall thickening Left inguinal lymph node enlargement plan: fu with uro, talked to uro rose blakely for now talked to nurse if can do wound cx plan dc soon with po abx for 2 weeks pain control History of Present Illness History of Present Illness ROS: no fever, chills, sob or chest pain left scrotum swelling with a small opening, better as per pt, still induration, tenderness Vitals Vitals Vital Signs Date Time Temp Pulse Resp B/P (MAP) Pulse Ox O2 Delivery O2 Flow Rate FiO2 11/02/17 07:00 97.6 61 16 109/63 (78) 98 Room Air 97.6 Physical Exam Physical Exam left scrotum swelling with a small opening, better as per pt, still induration, tenderness General: Alert, Oriented X3, Cooperative, No acute distress Heart: Regular rate, Normal S1, Normal S2 Abdomen: Normal bowel sounds, Soft, No tenderness, No hepatosplenomegaly, No masses Extremities: No clubbing, No cyanosis, No edema, Normal pulses, No tenderness/ swelling Skin: No rashes Labs LABS Laboratory Tests Test 11/02/17 04:00 White Blood Count 9.9 x10^3/uL (4.0-11.0) Red Blood Count 4.34 x10^6/uL (4.30-5.70) Hemoglobin 13.7 g/dL (13.0-17.5) Hematocrit 38.6 % (39.0-53.0) Mean Corpuscular Volume 89 fL (79-100) Mean Corpuscular Hemoglobin 32 pg (25-35) Mean Corpuscular Hemoglobin Concent 36 g/dL (31-37) Red Cell Distribution Width 12.7 % (11.5-14.5) Platelet Count 165 x10^3/uL (140-400) Neutrophils (%) (Auto) 66 % (31-73) Lymphocytes (%) (Auto) 21 % (24-48) Monocytes (%) (Auto) 9 % (0-9) Eosinophils (%) (Auto) 4 % (0-3) Basophils (%) (Auto) 0 % (0-3) Neutrophils # (Auto) 6.6 x10^3uL (1.8-7.7) Lymphocytes # (Auto) 2.0 x10^3/uL (1.0-4.8) Monocytes # (Auto) 0.9 x10^3/uL (0.0-1.1) Eosinophils # (Auto) 0.4 x10^3/uL (0.0-0.7) Basophils # (Auto) 0.0 x10^3/uL (0.0-0.2) Sodium Level 138 mmol/L (136-145) Potassium Level 4.0 mmol/L (3.5-5.1) Chloride Level 105 mmol/L (98-107) Carbon Dioxide Level 28 mmol/L (21-32) Anion Gap 5 (6-14) Blood Urea Nitrogen 13 mg/dL (8-26) Creatinine 1.0 mg/dL (0.7-1.3) Estimated GFR (Cockcroft-Gault) 101.2 Glucose Level 88 mg/dL (70-99) Calcium Level 8.3 mg/dL (8.5-10.1) Assessment and Plan Assessmemt and Plan Problems Medical Problems: (1) Left hydrocele Status: Acute (2) Swelling of scrotum Status: Acute Comment Review of Relevant I have reviewed the following items david (where applicable) has been applied. Labs Laboratory Tests Test 11/01/17 09:00 11/01/17 10:30 11/02/17 04:00 White Blood Count 14.0 x10^3/uL (4.0-11.0) 9.9 x10^3/uL (4.0-11.0) Red Blood Count 4.94 x10^6/uL (4.30-5.70) 4.34 x10^6/uL (4.30-5.70) Hemoglobin 15.4 g/dL (13.0-17.5) 13.7 g/dL (13.0-17.5) Hematocrit 43.7 % (39.0-53.0) 38.6 % (39.0-53.0) Mean Corpuscular Volume 88 fL (79-100) 89 fL (79-100) Mean Corpuscular Hemoglobin 31 pg (25-35) 32 pg (25-35) Mean Corpuscular Hemoglobin Concent 35 g/dL (31-37) 36 g/dL (31-37) Red Cell Distribution Width 13.1 % (11.5-14.5) 12.7 % (11.5-14.5) Platelet Count 170 x10^3/uL (140-400) 165 x10^3/uL (140-400) Neutrophils (%) (Auto) 79 % (31-73) 66 % (31-73) Lymphocytes (%) (Auto) 10 % (24-48) 21 % (24-48) Monocytes (%) (Auto) 10 % (0-9) 9 % (0-9) Eosinophils (%) (Auto) 1 % (0-3) 4 % (0-3) Basophils (%) (Auto) 1 % (0-3) 0 % (0-3) Neutrophils # (Auto) 11.1 x10^3uL (1.8-7.7) 6.6 x10^3uL (1.8-7.7) Lymphocytes # (Auto) 1.3 x10^3/uL (1.0-4.8) 2.0 x10^3/uL (1.0-4.8) Monocytes # (Auto) 1.4 x10^3/uL (0.0-1.1) 0.9 x10^3/uL (0.0-1.1) Eosinophils # (Auto) 0.2 x10^3/uL (0.0-0.7) 0.4 x10^3/uL (0.0-0.7) Basophils # (Auto) 0.1 x10^3/uL (0.0-0.2) 0.0 x10^3/uL (0.0-0.2) Erythrocyte Sedimentation Rate 12 (0-15) Sodium Level 138 mmol/L (136-145) 138 mmol/L (136-145) Potassium Level 4.0 mmol/L (3.5-5.1) 4.0 mmol/L (3.5-5.1) Chloride Level 100 mmol/L (98-107) 105 mmol/L (98-107) Carbon Dioxide Level 27 mmol/L (21-32) 28 mmol/L (21-32) Anion Gap 11 (6-14) 5 (6-14) Blood Urea Nitrogen 13 mg/dL (8-26) 13 mg/dL (8-26) Creatinine 1.0 mg/dL (0.7-1.3) 1.0 mg/dL (0.7-1.3) Estimated GFR (Cockcroft-Gault) 101.2 101.2 BUN/Creatinine Ratio 13 (6-20) Glucose Level 93 mg/dL (70-99) 88 mg/dL (70-99) Lactic Acid Level 0.5 mmol/L (0.4-2.0) Calcium Level 8.6 mg/dL (8.5-10.1) 8.3 mg/dL (8.5-10.1) Magnesium Level 1.9 mg/dL (1.8-2.4) Total Bilirubin 1.9 mg/dL (0.2-1.0) Aspartate Amino Transf (AST/SGOT) 17 U/L (15-37) Alanine Aminotransferase (ALT/SGPT) 15 U/L (16-63) Alkaline Phosphatase 105 U/L (46-116) Troponin I Quantitative < 0.017 ng/mL (0.000-0.055) Total Protein 7.3 g/dL (6.4-8.2) Albumin 3.9 g/dL (3.4-5.0) Albumin/Globulin Ratio 1.1 (1.0-1.7) Urine Collection Type Void Urine Color Yellow Urine Clarity Clear Urine pH 6.5 Urine Specific [place] 1.020 Urine Protein Negative mg/dL (NEG-TRACE) Urine Glucose (UA) Negative mg/dL (NEG) Urine Ketones (Stick) 15 mg/dL (NEG) Urine Blood Negative (NEG) Urine Nitrite Negative (NEG) Urine Bilirubin Negative (NEG) Urine Urobilinogen Dipstick 1.0 mg/dL (0.2 mg/dL) Urine Leukocyte Esterase Negative (NEG) Urine RBC 3-5 /HPF (0-2) Urine WBC 1-4 /HPF (0-4) Urine Squamous Epithelial Cells Few /LPF Urine Bacteria Few /HPF (0-FEW) Urine Mucus Marked /LPF Urine Trichomonas Present Laboratory Tests Test 11/02/17 04:00 White Blood Count 9.9 x10^3/uL (4.0-11.0) Red Blood Count 4.34 x10^6/uL (4.30-5.70) Hemoglobin 13.7 g/dL (13.0-17.5) Hematocrit 38.6 % (39.0-53.0) Mean Corpuscular Volume 89 fL (79-100) Mean Corpuscular Hemoglobin 32 pg (25-35) Mean Corpuscular Hemoglobin Concent 36 g/dL (31-37) Red Cell Distribution Width 12.7 % (11.5-14.5) Platelet Count 165 x10^3/uL (140-400) Neutrophils (%) (Auto) 66 % (31-73) Lymphocytes (%) (Auto) 21 % (24-48) Monocytes (%) (Auto) 9 % (0-9) Eosinophils (%) (Auto) 4 % (0-3) Basophils (%) (Auto) 0 % (0-3) Neutrophils # (Auto) 6.6 x10^3uL (1.8-7.7) Lymphocytes # (Auto) 2.0 x10^3/uL (1.0-4.8) Monocytes # (Auto) 0.9 x10^3/uL (0.0-1.1) Eosinophils # (Auto) 0.4 x10^3/uL (0.0-0.7) Basophils # (Auto) 0.0 x10^3/uL (0.0-0.2) Sodium Level 138 mmol/L (136-145) Potassium Level 4.0 mmol/L (3.5-5.1) Chloride Level 105 mmol/L (98-107) Carbon Dioxide Level 28 mmol/L (21-32) Anion Gap 5 (6-14) Blood Urea Nitrogen 13 mg/dL (8-26) Creatinine 1.0 mg/dL (0.7-1.3) Estimated GFR (Cockcroft-Gault) 101.2 Glucose Level 88 mg/dL (70-99) Calcium Level 8.3 mg/dL (8.5-10.1) Microbiology 11/01/17 Blood Culture - Preliminary, Resulted NO GROWTH AFTER 1 DAY Medications Current Medications Sodium Chloride 1,000 ml @ 1,000 mls/hr 1X ONCE IV Last administered on at 09:48; Start 11/01/17 at 09:00; Stop 11/01/17 at 09:59; Status DC Morphine Sulfate (Morphine Sulfate) 4 mg 1X ONCE IV Last administered on at 09:39; Start 11/01/17 at 09:00; Stop 11/01/17 at 09:01; Status DC Ondansetron HCl (Zofran) 4 mg 1X ONCE IV Last administered on 11/01/17at 09:40 ; Start 11/01/17 at 09:30; Stop 11/01/17 at 09:31; Status DC Piperacillin Sod/ Tazobactam Sod 3.375 gm/Sodium Chloride 50 ml @ 100 mls/hr 1X ONCE IV Last administered on 11/01/17at 10:39; Start 11/01/17 at 10:15; Stop 11/01/17 at 10:44; Status DC Morphine Sulfate (Morphine Sulfate) 4 mg 1X ONCE IV Last administered on at 12:30; Start 11/01/17 at 10:30; Stop 11/01/17 at 10:31; Status DC Ondansetron HCl (Zofran) 4 mg PRN Q8HRS PRN IV NAUSEA/VOMITING; Start 11/01/17 at 11:45; Stop 11/01/17 at 12:01; Status DC Morphine Sulfate (Morphine Sulfate) 4 mg PRN Q2HR PRN IV PAIN Last administered on 11/01/17at 21:15; Start 11/01/17 at 11:45; Stop 11/02/17 at 11:44 Ondansetron HCl (Zofran) 4 mg PRN Q6HRS PRN IV NAUSEA/VOMITING; Start 11/01/17 at 12:00 Piperacillin Sod/ Tazobactam Sod (Zosyn Per Pharmacy) 1 each PRN DAILY PRN MC SEE COMMENTS; Start 11/01/17 at 12:00; Status UNV Oxycodone/ Acetaminophen (Percocet 5/325) 1 tab PRN Q4HRS PRN PO SEVERE PAIN Last administered on 11/02/17at 05:56; Start 11/01/17 at 12:00 Acetaminophen (Tylenol) 500 mg PRN Q6HRS PRN PO MILD PAIN / TEMP; Start at 12:00 Naproxen (Naprosyn) 500 mg BID PO Last administered on 11/02/17at 09:06; Start 11/01/17 at 12:00 Acetaminophen/ Hydrocodone Bitart (Lortab 5/325) 1 tab PRN Q6HRS PRN PO MODERATE PAIN; Start 11/01/17 at 12:15 Ondansetron HCl (Zofran Odt) 4 mg BID PRN PO NAUSEA/VOMITING; Start 11/01/17 at 12:15 Pantoprazole Sodium (Protonix) 40 mg DAILYAC PO Last administered on 11/02/17at 09:06; Start 11/02/17 at 07:30 Piperacillin Sod/ Tazobactam Sod 3.375 gm/Sodium Chloride 50 ml @ 100 mls/hr Q6HRS IV Last administered on 11/02/17at 05:57; Start 11/01/17 at 18:00 Active Scripts Active Prilosec Otc (Omeprazole Magnesium) 20 Mg Tablet.dr 1 Tab PO DAILY Zofran Odt (Ondansetron) 4 Mg Tab.rapdis 4 Mg PO BID PRN [place] 5-325 Tablet (Acetaminophen/Hydrocodone Bitart) 1 Each Tablet 1 Tab PO PRN Q6HRS PRN Vitals/I & O Vital Sign - Last 24 Hours 11/01/17 11/01/17 11/01/17 11/01/17 12:00 12:30 14:00 15:00 Temp 97.8 97.8 Pulse 88 84 Resp 18 18 B/P (MAP) 117/80 (92) 116/63 (80) Pulse Ox 99 99 97 O2 Delivery Room Air Room Air Room Air 11/01/17 11/01/17 11/01/17 11/01/17 17:10 18:10 19:30 20:00 Temp 98.2 98.2 Pulse 80 Resp 18 18 B/P (MAP) 142/43 (76) Pulse Ox 97 97 98 O2 Delivery Room Air Room Air Room Air 11/01/17 11/01/17 11/01/17 11/01/17 21:12 21:15 21:45 23:26 Temp 98.1 98.1 Pulse 67 Resp 20 20 20 18 B/P (MAP) 112/65 (81) Pulse Ox 98 98 98 98 O2 Delivery Room Air Room Air Room Air Room Air 11/02/17 11/02/17 11/02/17 11/02/17 03:10 05:56 07:00 07:00 Temp 98.2 97.6 98.2 97.6 Pulse 80 61 Resp 18 20 16 16 B/P (MAP) 114/60 (78) 109/63 (78) Pulse Ox 97 97 98 O2 Delivery Room Air Room Air Room Air Room Air Intake and Output 11/01/17 11/01/17 11/02/17 15:00 23:00 07:00 Intake Total 1050 ml 1080 ml 640 ml Output Total 1 ml Balance 1050 ml 1080 ml 639 ml PORFIRIO STARK MD Nov 02, 2017 11:21
[2017-11-02] MEDS: cefTRIAXone IV Push 1 GM VIAL. IVP SCH (12:02)
[2017-11-02] MEDS: metroNIDAZOLE 500 MG TABLET PO SCH ×2 (12:03→20:34)
[2017-11-02] MEDS: LINEZOLID 600 MG TABLET PO SCH ×2 (12:03→20:31)
--- NOTE | 2017-11-02 12:09 | PDOC ---
Infectious Disease Note Subjective: Subjective pt seen and examined consult dictated [id number] Vital Signs: Vital Signs Vital Signs Date Time Temp Pulse Resp B/P (MAP) Pulse Ox O2 Delivery O2 Flow Rate FiO2 11/02/17 07:00 97.6 61 16 109/63 (78) 98 Room Air 97.6 Physical Exam: PHYSICAL EXAM left scrotum swelling with a small opening, better as per pt, still induration, tenderness Medications: Inpatient Meds: Current Medications Medications (Trade) Dose Ordered Sig/Will Start Time Stop Time Status Last Admin Dose Admin Acetaminophen (Tylenol) 500 mg PRN Q6HRS PRN 11/01/17 12:00 Acetaminophen/ Hydrocodone Bitart (Lortab 5/325) 1 tab PRN Q6HRS PRN 11/01/17 12:15 Ceftriaxone Sodium 1 gm/ Dextrose 50 ml @ 100 mls/hr Q24H 11/02/17 11:30 UNV Ceftriaxone Sodium (Rocephin) 1 gm Q24H 11/02/17 12:00 Linezolid (Zyvox) 600 mg BID 11/02/17 12:00 Metronidazole (Flagyl) 1,000 mg Q12HR 11/02/17 12:00 Morphine Sulfate (Morphine Sulfate) 4 mg PRN Q2HR PRN 11/01/17 11:45 11/02/17 11:44 DC 11/01/17 21:15 4 MG Naproxen (Naprosyn) 500 mg BID 11/01/17 12:00 11/02/17 09:06 500 MG Ondansetron HCl (Zofran Odt) 4 mg BID PRN 11/01/17 12:15 Ondansetron HCl (Zofran) 4 mg PRN Q6HRS PRN 11/01/17 12:00 Oxycodone/ Acetaminophen (Percocet 5/325) 1 tab PRN Q4HRS PRN 11/01/17 12:00 11/02/17 05:56 1 TAB Pantoprazole Sodium (Protonix) 40 mg DAILYAC 11/02/17 07:30 11/02/17 09:06 40 MG Piperacillin Sod/ Tazobactam Sod (Zosyn Per Pharmacy) 1 each PRN DAILY PRN 11/01/17 12:00 UNV Piperacillin Sod/ Tazobactam Sod 3.375 gm/Sodium Chloride 50 ml @ 100 mls/hr Q6HRS 11/01/17 18:00 11/02/17 11:21 DC 11/02/17 05:57 100 MLS/HR Sodium Chloride 1,000 ml @ 1,000 mls/hr 1X ONCE 11/01/17 09:00 11/01/17 09:59 DC 11/01/17 09:48 1,000 MLS/HR Labs: Lab Laboratory Tests Test 11/02/17 04:00 White Blood Count 9.9 x10^3/uL (4.0-11.0) Red Blood Count 4.34 x10^6/uL (4.30-5.70) Hemoglobin 13.7 g/dL (13.0-17.5) Hematocrit 38.6 % (39.0-53.0) Mean Corpuscular Volume 89 fL (79-100) Mean Corpuscular Hemoglobin 32 pg (25-35) Mean Corpuscular Hemoglobin Concent 36 g/dL (31-37) Red Cell Distribution Width 12.7 % (11.5-14.5) Platelet Count 165 x10^3/uL (140-400) Neutrophils (%) (Auto) 66 % (31-73) Lymphocytes (%) (Auto) 21 % (24-48) Monocytes (%) (Auto) 9 % (0-9) Eosinophils (%) (Auto) 4 % (0-3) Basophils (%) (Auto) 0 % (0-3) Neutrophils # (Auto) 6.6 x10^3uL (1.8-7.7) Lymphocytes # (Auto) 2.0 x10^3/uL (1.0-4.8) Monocytes # (Auto) 0.9 x10^3/uL (0.0-1.1) Eosinophils # (Auto) 0.4 x10^3/uL (0.0-0.7) Basophils # (Auto) 0.0 x10^3/uL (0.0-0.2) Sodium Level 138 mmol/L (136-145) Potassium Level 4.0 mmol/L (3.5-5.1) Chloride Level 105 mmol/L (98-107) Carbon Dioxide Level 28 mmol/L (21-32) Anion Gap 5 (6-14) Blood Urea Nitrogen 13 mg/dL (8-26) Creatinine 1.0 mg/dL (0.7-1.3) Estimated GFR (Cockcroft-Gault) 101.2 Glucose Level 88 mg/dL (70-99) Calcium Level 8.3 mg/dL (8.5-10.1) Objective: Assessment: Lt scrotal cellulitis Lt epididymitis Lt hydrocoele Urine + trichomonas Plan: Plan of Care flagyl 1000 mg po bid one day ceftriaxone and doxycycline linezolid urine naat chlamydia and gonorrhea, RPR f/u c/s and labs MINERVA GREER MD Nov 02, 2017 12:09
--- NOTE | 2017-11-02 13:02 | CONS ---
DATE OF CONSULTATION: 11/02/2017 REFERRING PHYSICIAN: Gwen Pham M.D. REASON FOR CONSULTATION: Left scrotal swelling. HISTORY OF PRESENT ILLNESS: A 37-year-old male presented to the ER on 11/01/2017 with 2-day history of left-sided testicular and scrotal pain with swelling. He had concerns of possible insect bite as he had a lesion on the right thigh, which is healing. He now has some drainage from the scrotal skin. He denied any penile discharge or symptoms. He denies any fevers or chills. Denies any history of STDs. Denies any history of trauma. Whenever the patient stands up and walks around, he still has discomfort. He was started on empiric Zosyn. UA was negative. Urine was positive for Trichomonas per my discussion with pharmacy. The patient has not received any treatment for the same. He was seen by Urology who wants to continue current antibiotic treatment. He had ultrasound of the scrotum and abdomen, which shows no testicular abnormality, small left hydrocele, left scrotal wall thickening, mildly enlarged hyperemic left inguinal lymph node. This finding suggests a local inflammatory process suggests cellulitis, perhaps related to the history of insect bite. Ultrasound of the abdomen was done due to elevated total bilirubin of 1.9, which shows no acute abnormality in the right upper quadrant. Today, the patient states the swelling is somewhat down but still continues to have discomfort. He is also eager to be discharged. Plans are for discharge tomorrow. The patient denies any fevers, chills, history of STD and syphilis. The patient has been with stable partner for the last 1 year. She is at the patient's bedside and denies any history of symptoms. The patient denies any lower quadrant abdominal pain. He still has pain around the left groin. He states there is some thickening and being somewhat decreased today. Denies any fevers; chills; nausea; vomiting; sore throat; oral sores; difficulty swallowing; nausea; vomiting; diarrhea; abdominal pain; symptoms; back pain except for stiffness from lying down in bed; rash; other skin lesions except for the one in the right thigh as above, which is healing or joint pain. PAST MEDICAL HISTORY: Negative. PAST SURGICAL HISTORY: Negative. SOCIAL HISTORY: He denies smoking or illicit drug use. 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 Sexually active with partner, stable for 1 year. No history of STDs. CURRENT MEDICATIONS: IV Zosyn, morphine, ondansetron, oxycodone/acetaminophen and naproxen. ALLERGIES: No known drug allergies. REVIEW OF SYSTEMS: Negative except for above in HPI. PHYSICAL EXAMINATION: VITAL SIGNS: Temperature 97.6, pulse 61, respiration 16, blood pressure 109/63 and oxygen saturation 98% on room air. GENERAL: Alert, oriented x 3 male, resting in bed, in no acute distress. HEENT: Normocephalic, atraumatic and anicteric. No thrush. NECK: Supple. No JVD. LUNGS: Clear bilaterally. No wheezing. HEART: S1 and S2 present. No gallops or murmurs. ABDOMEN: Soft, nontender and nondistended. EXTREMITIES: No lower quadrant pain. DERMATOLOGICAL: No generalized rash except for dry scab, right thigh without any evidence of purulence, surrounding cellulitis or underlying abscess. GENITOURINARY: Scrotum is swollen, especially over the left hemiscrotal area, indurated, tender and small crust with drainage noted. No purulence was able to be expressed today. No erythema, no crepitus and no fluctuance. Left groin lymph node present, possible epididymal swelling. No penile drainage or GUD noted. Testes appears normal on palpation. LABORATORY DATA: WBC 14.0, RBC 4.94, hemoglobin 15.4, hematocrit 43 and platelets 170. Sodium 138, potassium 4.0, chloride 100, bicarbonate 27, BUN 13 and creatinine 1.0. Lactate 0.5, calcium 8.6, mag 1.9, total bilirubin 1.9, AST 17, ALT 15, alkaline phosphatase 105 and albumin 3.9. UA negative except for Trichomonas present, marked mucus present. RADIOLOGICAL DATA: Abdominal/scrotal ultrasound, impression: No testicular abnormalities detected, small left hydrocele, left scrotal wall thickening, mildly enlarged and hyperemic left inguinal lymph node. The findings suggest a local inflammatory process and suggest cellulitis perhaps related to the history of insect bite. Abdominal ultrasound shows no acute abnormality seen in the right upper quadrant. IMPRESSION: 1. A 37-year-old male with scrotal cellulitis and left mild hydrocele with scrotal wall thickening on ultrasound and lymphadenopathy. 2. History of possible insect bite to right thigh.Not infected on todays examination 3. Urinalysis positive for Trichomonas, not treated per my discussion with pharmacy. 4. No history of sexually transmitted diseases or UTIs or SSTIs. 5. Possible left epididymal thickening and tenderness.UA negative RECOMMENDATIONS: 1. We will discontinue Zosyn. 2. Start the patient on IV ceftriaxone and empiric linezolid. 3. We will obtain urine for chlamydia and gonorrhea. 4. We will add empiric doxycycline 100mg po b.i.d. 5. Continue local care. 6. Follow up blood cultures, which are negative till now. 7. Obtain RPR. 8. The patient was offered HIV antibody test, which he is refusing at this time. 9. Continue supportive care. 10. Follow up labs in a.m. Thank you, Dr. Pham for consulting Infectious Disease to participate in this patient's care. If you have any questions, do not hesitate to contact me. MINERVA GREER MD DR: MARIA TERESA/luciana JOB#: [id number] / [id number] LEO
[2017-11-02] MEDS: DOXYCYCLINE HYCLATE 100 MG TABLET PO SCH ×2 (14:43→20:30)
[2017-11-02 15:00] VITALS: BP 113/63
[2017-11-02 19:00] VITALS: BP 113/65
[2017-11-02] MEDS: LACTOBACILLUS RHAMNOSUS GG 1 CAPSULE. PO SCH (20:30)
[2017-11-02 23:00] VITALS: BP 115/65
[2017-11-03 03:00] VITALS: BP 111/58
[2017-11-03 06:33] LABS: CALCIUM 9.1 mg/dL (8.5-10.1); GFR 101.2; POTASSIUM 3.8 mmol/L (3.5-5.1)
[2017-11-03 07:00] VITALS: BP 117/69
[2017-11-03 07:03] LABS: BASO % 0 % (0-3); EOS # 0.3 x10^3/uL (0.0-0.7); EOS % 4 % (0-3); HEMATOCRIT 40.2 % (39.0-53.0); HEMOGLOBIN 13.7 g/dL (13.0-17.5); LYMPH # 1.7 x10^3/uL (1.0-4.8); LYMPH % 21 % (24-48); MEAN CORPUSCULAR HEMOGLOBIN 30 pg (25-35); MEAN CORPUSCULAR HGB CONC 34 g/dL (31-37); MEAN CORPUSCULAR VOLUME 89 fL (79-100); MONO # 0.6 x10^3/uL (0.0-1.1); MONO % 8 % (0-9); NEUT # 5.4 x10^3uL (1.8-7.7); NEUT % 67 % (31-73); PLATELET COUNT 185 x10^3/uL (140-400); RED BLOOD COUNT 4.52 x10^6/uL (4.30-5.70); RED CELL DISTRIBUTION WIDTH 12.8 % (11.5-14.5); WHITE BLOOD COUNT 8.1 x10^3/uL (4.0-11.0)
[2017-11-03] MEDS: PANTOPRAZOLE 40 MG TABLET.DR. PO SCH (08:54)
[2017-11-03] MEDS: DOXYCYCLINE HYCLATE 100 MG TABLET PO SCH ×2 (08:55→20:13)
[2017-11-03] MEDS: metroNIDAZOLE 500 MG TABLET PO SCH ×2 (08:55→20:14)
[2017-11-03] MEDS: LACTOBACILLUS RHAMNOSUS GG 1 CAPSULE. PO SCH ×2 (08:55→20:14)
[2017-11-03] MEDS: LINEZOLID 600 MG TABLET PO SCH ×2 (08:55→20:14)
[2017-11-03] MEDS: NAPROXEN 500 MG TABLET PO SCH ×2 (08:56→20:14)
--- NOTE | 2017-11-03 09:04 | PDOC ---
GAYATHRI WHITAKER [employer]MENT MANAGER 11/03/17 0904: SUBJECTIVE Subjective Patient's pain level is greatly improved. He has noticed a small amount of drainage coming from the affected area. It is a light yellow color with no noticeable odor. OBJECTIVE Objective Physical Exam: General appearance: Alert and Oriented Head: Normocephalic, without obvious abnormality Eyes: conjunctivae/corneas clear. PERRL, EOM's intact. Fundi benign Lungs: regular respirations, non labored breathing. Pelvic: Scrotal exam: small amount of induration on the left side, just below the base of the phallus. Slight tenderness and swelling on the left testicle, WNL on the right. Patient reports tenderness is greatly improved. Scant amount of clear yellow drainage noted on the bedsheets adjacent to the affected area. No odor noted. Vital Signs Vital Signs Date Time Temp Pulse Resp B/P (MAP) Pulse Ox O2 Delivery O2 Flow Rate FiO2 11/03/17 07:00 98.2 65 18 117/69 (85) 99 Room Air 98.2 11/03/17 03:00 98.0 67 16 111/58 (75) 95 Room Air 98.0 11/02/17 23:00 98.1 56 16 115/65 (82) 97 Room Air 98.1 11/02/17 21:31 18 Room Air 11/02/17 20:31 18 98 Room Air 11/02/17 20:00 Room Air 11/02/17 19:00 98.3 67 16 113/65 (81) 98 Room Air 98.3 11/02/17 16:19 16 Room Air 11/02/17 15:00 97.7 73 16 113/63 (80) 97 Room Air 97.7 11/02/17 12:17 16 Room Air 11/02/17 11:00 97.7 74 18 103/62 (76) 99 Room Air 97.7 I & O Intake and Output 11/03/17 07:00 Intake Total 250 ml Output Total 1 ml Balance 249 ml Intake Oral 200 ml IV Total 50 ml Output Urine Total 1 ml # Voids 1 PHYSICAL EXAM Physical Exam Physical Exam: General appearance: Alert and Oriented Head: Normocephalic, without obvious abnormality Eyes: conjunctivae/corneas clear. PERRL, EOM's intact. Fundi benign Lungs: regular respirations, non labored breathing. Pelvic: Scrotal exam: small amount of induration on the left side, just below the base of the phallus. Slight tenderness and swelling on the left testicle, WNL on the right. Patient reports tenderness is greatly improved. Scant amount of clear yellow drainage noted on the bedsheets adjacent to the affected area. No odor noted. ASSESSMENT/PLAN Assessment/Plan Continue antibiotics while in house. Whenever he does go home he will need enough antibiotics to equal two weeks worth of therapy. From a urology standpoint, he could go home on oral antibiotics today. A follow up appointment has been arranged for patient on 11/16/17 at 1500. Pt given appointment card and new patient paperwork yesterday. All questions answered. There is some drainage noted; wound appears like it is starting to declare itself. Discussed with Dr. Stallworth Surgeon believes the best way to manage drainage is to do Bedside I and D of drainage. Attending RN contacted and consent entered. Will follow while in house. Problems: (1) Left hydrocele (2) Swelling of scrotum COMMENT Lab Laboratory Tests Test 11/03/17 05:08 White Blood Count 8.1 x10^3/uL (4.0-11.0) Red Blood Count 4.52 x10^6/uL (4.30-5.70) Hemoglobin 13.7 g/dL (13.0-17.5) Hematocrit 40.2 % (39.0-53.0) Mean Corpuscular Volume 89 fL (79-100) Mean Corpuscular Hemoglobin 30 pg (25-35) Mean Corpuscular Hemoglobin Concent 34 g/dL (31-37) Red Cell Distribution Width 12.8 % (11.5-14.5) Platelet Count 185 x10^3/uL (140-400) Neutrophils (%) (Auto) 67 % (31-73) Lymphocytes (%) (Auto) 21 % (24-48) Monocytes (%) (Auto) 8 % (0-9) Eosinophils (%) (Auto) 4 % (0-3) Basophils (%) (Auto) 0 % (0-3) Neutrophils # (Auto) 5.4 x10^3uL (1.8-7.7) Lymphocytes # (Auto) 1.7 x10^3/uL (1.0-4.8) Monocytes # (Auto) 0.6 x10^3/uL (0.0-1.1) Eosinophils # (Auto) 0.3 x10^3/uL (0.0-0.7) Basophils # (Auto) 0.0 x10^3/uL (0.0-0.2) Sodium Level 138 mmol/L (136-145) Potassium Level 3.8 mmol/L (3.5-5.1) Chloride Level 102 mmol/L (98-107) Carbon Dioxide Level 28 mmol/L (21-32) Anion Gap 8 (6-14) Blood Urea Nitrogen 12 mg/dL (8-26) Creatinine 1.0 mg/dL (0.7-1.3) Estimated GFR (Cockcroft-Gault) 101.2 Glucose Level 84 mg/dL (70-99) Calcium Level 9.1 mg/dL (8.5-10.1) Treponema pallidum Antibody Nonreactive (Nonreactive) MEHDI STALLWORTH MD 11/03/17 1155: ASSESSMENT/PLAN Assessment/Plan Small abscess has declared itself since admission. Bedside I and D was performed. Please see attached operative note. Starting tomorrow: remove packing, shower daily, replace packing. Consider wound care consult to assist in arranging outpatient care GAYATHRI WHITAKER APRN Nov 03, 2017 09:04 MEHDI STALLWORTH MD Nov 03, 2017 11:55
[2017-11-03] MEDS ORDERED: LIDOCAINE 1% PF 30 ML VIAL. INJ ONE (10:30)
--- NOTE | 2017-11-03 10:41 | PDOC ---
Infectious Disease Note Subjective: Subjective Pt says feels better no f/c/n/v/d/worsening scrotal swelling or pain ROS: ROS Negative except for above. Vital Signs: Vital Signs Vital Signs Date Time Temp Pulse Resp B/P (MAP) Pulse Ox O2 Delivery O2 Flow Rate FiO2 11/03/17 07:00 98.2 65 18 117/69 (85) 99 Room Air 98.2 Physical Exam: PHYSICAL EXAM GENERAL: Alert, oriented x 3 male, resting in bed, in no acute distress. HEENT: Normocephalic, atraumatic and anicteric. No thrush. NECK: Supple. No JVD. LUNGS: Clear bilaterally. No wheezing. HEART: S1 and S2 present. No gallops or murmurs. ABDOMEN: Soft, nontender and nondistended. EXTREMITIES: No lower quadrant pain. DERMATOLOGICAL: No generalized rash except for dry scab, right thigh without any evidence of purulence, surrounding cellulitis or underlying abscess. GENITOURINARY: Scrotum is swollen, especially over the left hemiscrotal area, indurated, tender and small crust with drainage noted. No purulence was able to be expressed today. No erythema, no crepitus and no fluctuance. Left groin lymph node present, possible epididymal swelling. No penile drainage or GUD noted. Testes appears normal on palpation. Medications: Inpatient Meds: Current Medications Medications (Trade) Dose Ordered Sig/Will Start Time Stop Time Status Last Admin Dose Admin Acetaminophen (Tylenol) 500 mg PRN Q6HRS PRN 11/01/17 12:00 Acetaminophen/ Hydrocodone Bitart (Lortab 5/325) 1 tab PRN Q6HRS PRN 11/01/17 12:15 Ceftriaxone Sodium 1 gm/ Dextrose 50 ml @ 100 mls/hr Q24H 11/02/17 11:30 UNV Ceftriaxone Sodium (Rocephin) 1 gm Q24H 11/02/17 12:00 11/02/17 12:02 1 GM Doxycycline Hyclate (Vibra-Tab) 100 mg BID 11/02/17 13:00 11/03/17 08:55 100 MG Lactobacillus Rhamnosus (Culturelle) 1 cap BID 11/02/17 21:00 11/03/17 08:55 1 CAP Lidocaine HCl (Xylocaine 1% Pf 30ml Vial) 30 ml 1X ONCE 11/03/17 10:30 11/03/17 10:31 DC Linezolid (Zyvox) 600 mg BID 11/02/17 12:00 11/03/17 08:55 600 MG Metronidazole (Flagyl) 1,000 mg Q12HR 11/02/17 12:00 11/03/17 08:55 1,000 MG Morphine Sulfate (Morphine Sulfate) 4 mg PRN Q2HR PRN 11/01/17 11:45 11/02/17 11:44 DC 11/01/17 21:15 4 MG Naproxen (Naprosyn) 500 mg BID 11/01/17 12:00 11/03/17 08:56 500 MG Ondansetron HCl (Zofran Odt) 4 mg BID PRN 11/01/17 12:15 Ondansetron HCl (Zofran) 4 mg PRN Q6HRS PRN 11/01/17 12:00 Oxycodone/ Acetaminophen (Percocet 5/325) 1 tab PRN Q4HRS PRN 11/01/17 12:00 11/02/17 20:31 1 TAB Pantoprazole Sodium (Protonix) 40 mg DAILYAC 11/02/17 07:30 11/03/17 08:54 40 MG Piperacillin Sod/ Tazobactam Sod (Zosyn Per Pharmacy) 1 each PRN DAILY PRN 11/01/17 12:00 UNV Piperacillin Sod/ Tazobactam Sod 3.375 gm/Sodium Chloride 50 ml @ 100 mls/hr Q6HRS 11/01/17 18:00 11/02/17 11:21 DC 11/02/17 05:57 100 MLS/HR Sodium Chloride 1,000 ml @ 1,000 mls/hr 1X ONCE 11/01/17 09:00 11/01/17 09:59 DC 11/01/17 09:48 1,000 MLS/HR Labs: Lab Laboratory Tests Test 11/03/17 05:08 White Blood Count 8.1 x10^3/uL (4.0-11.0) Red Blood Count 4.52 x10^6/uL (4.30-5.70) Hemoglobin 13.7 g/dL (13.0-17.5) Hematocrit 40.2 % (39.0-53.0) Mean Corpuscular Volume 89 fL (79-100) Mean Corpuscular Hemoglobin 30 pg (25-35) Mean Corpuscular Hemoglobin Concent 34 g/dL (31-37) Red Cell Distribution Width 12.8 % (11.5-14.5) Platelet Count 185 x10^3/uL (140-400) Neutrophils (%) (Auto) 67 % (31-73) Lymphocytes (%) (Auto) 21 % (24-48) Monocytes (%) (Auto) 8 % (0-9) Eosinophils (%) (Auto) 4 % (0-3) Basophils (%) (Auto) 0 % (0-3) Neutrophils # (Auto) 5.4 x10^3uL (1.8-7.7) Lymphocytes # (Auto) 1.7 x10^3/uL (1.0-4.8) Monocytes # (Auto) 0.6 x10^3/uL (0.0-1.1) Eosinophils # (Auto) 0.3 x10^3/uL (0.0-0.7) Basophils # (Auto) 0.0 x10^3/uL (0.0-0.2) Sodium Level 138 mmol/L (136-145) Potassium Level 3.8 mmol/L (3.5-5.1) Chloride Level 102 mmol/L (98-107) Carbon Dioxide Level 28 mmol/L (21-32) Anion Gap 8 (6-14) Blood Urea Nitrogen 12 mg/dL (8-26) Creatinine 1.0 mg/dL (0.7-1.3) Estimated GFR (Cockcroft-Gault) 101.2 Glucose Level 84 mg/dL (70-99) Calcium Level 9.1 mg/dL (8.5-10.1) Treponema pallidum Antibody Nonreactive (Nonreactive) Micro BC neg so far Objective: Assessment: Lt scrotal cellulitis early developing abscess Lt epididymitis Mild Lt hydrocoele Urine + trichomonas Possible left epididymal thickening and tenderness. Plan: Plan of Care cont ceftriaxone,doxycycline, linezolid f/u urine naat chlamydia and gonorrhea pt is awaiting i and d per RN later today f/u c/s ,labs and serologies MINERVA GREER MD Nov 03, 2017 10:41
[2017-11-03 11:00] VITALS: BP 122/75
--- NOTE | 2017-11-03 12:18 | OP ---
DATE OF SURGERY: 11/03/2017 PREOPERATIVE DIAGNOSIS: Scrotal abscess. POSTOPERATIVE DIAGNOSIS: Scrotal abscess. PROCEDURE PERFORMED: Incision and drainage of scrotal abscess. ANESTHESIA: Local. COMPLICATIONS: None. BLOOD LOSS: Less than 5 mL. INDICATIONS FOR PROCEDURE: The patient is a 37-year-old gentleman who presented over the weekend with scrotal swelling and discomfort. Previously he had noted draining about a week prior. There were no areas of fluctuance or concern at the time; however, the last 2 days an abscess has declared itself and began draining this morning. DESCRIPTION OF PROCEDURE: The patient was met in his hospital room where in the risks, benefits and alternatives were explained. Informed consent was obtained. He was then prepped and draped in a sterile fashion. 10 mL of 1% lidocaine without epinephrine was instilled into the subcutaneous tissues around the abscess. The draining sinus was then bluntly opened with a pair of scissors where purulent fluid was encountered. Two culture swabs were obtained and sent to the lab for analysis. The abscess was then probed with a Q-tip and found to run roughly 2 cm subcutaneously; however, was not very deep. There was some woodiness of the deep tissues, which was aspirated with a needle and no purulent fluid was expressed. The skin over top the tunnels was then incised. The wound was then irrigated with normal saline and packed with two small pieces of quarter-inch packing tape. The remaining skin was healthy in appearance. Just surrounding the abscess, the tissue was quite indurated, but there were no areas of fluctuance or other areas that required drainage. The patient tolerated the procedure well and we will continue antibiotics and observation of his wound with daily wound care. MEHDI STALLWORTH MD DR: TUTU/luciana JOB#: [id number] / [id number]
[2017-11-03] MEDS: cefTRIAXone IV Push 1 GM VIAL. IVP SCH (13:00)
[2017-11-03] MEDS: oxyCODONE/APAP 5/325 1 TAB TABLET PO PRN ×2 (13:00→17:32)
--- NOTE | 2017-11-03 14:01 | PDOC ---
PROGRESS NOTES Chief Complaint Chief Complaint left scrotal cellulitis, wo abscess Small left hydrocele Left scrotal wall thickening Left inguinal lymph node enlargement early developing abscess Lt epididymitis Urine + trichomonas plan: fu with uro, talked to uro ID consulted, on ceftriaxone, flagyl, doxy, zyvox talked to nurse if can do wound cx i and d with uro today plan dc soon with po abx for 2 weeks pain control History of Present Illness History of Present Illness ROS: no fever, chills, sob or chest pain left scrotum swelling with a small opening, better as per pt, still induration, tenderness Vitals Vitals Vital Signs Date Time Temp Pulse Resp B/P (MAP) Pulse Ox O2 Delivery O2 Flow Rate FiO2 11/03/17 13:00 Room Air 11/03/17 11:00 98.1 69 18 122/75 (91) 98 98.1 Physical Exam Physical Exam GENERAL: Alert, oriented x 3 male, resting in bed, in no acute distress. HEENT: Normocephalic, atraumatic and anicteric. No thrush. NECK: Supple. No JVD. LUNGS: Clear bilaterally. No wheezing. HEART: S1 and S2 present. No gallops or murmurs. ABDOMEN: Soft, nontender and nondistended. EXTREMITIES: No lower quadrant pain. DERMATOLOGICAL: No generalized rash except for dry scab, right thigh without any evidence of purulence, surrounding cellulitis or underlying abscess. GENITOURINARY: Scrotum is swollen, especially over the left hemiscrotal area, indurated, tender and small crust with drainage noted. No purulence was able to be expressed today. No erythema, no crepitus and no fluctuance. Left groin lymph node present, possible epididymal swelling. No penile drainage or GUD noted. Testes appears normal on palpation. General: Alert, Oriented X3, Cooperative, No acute distress Heart: Regular rate, Normal S1, Normal S2 Abdomen: Normal bowel sounds, Soft, No tenderness, No hepatosplenomegaly, No masses Extremities: No clubbing, No cyanosis, No edema, Normal pulses, No tenderness/ swelling Skin: No rashes Labs LABS Laboratory Tests Test 11/03/17 05:08 White Blood Count 8.1 x10^3/uL (4.0-11.0) Red Blood Count 4.52 x10^6/uL (4.30-5.70) Hemoglobin 13.7 g/dL (13.0-17.5) Hematocrit 40.2 % (39.0-53.0) Mean Corpuscular Volume 89 fL (79-100) Mean Corpuscular Hemoglobin 30 pg (25-35) Mean Corpuscular Hemoglobin Concent 34 g/dL (31-37) Red Cell Distribution Width 12.8 % (11.5-14.5) Platelet Count 185 x10^3/uL (140-400) Neutrophils (%) (Auto) 67 % (31-73) Lymphocytes (%) (Auto) 21 % (24-48) Monocytes (%) (Auto) 8 % (0-9) Eosinophils (%) (Auto) 4 % (0-3) Basophils (%) (Auto) 0 % (0-3) Neutrophils # (Auto) 5.4 x10^3uL (1.8-7.7) Lymphocytes # (Auto) 1.7 x10^3/uL (1.0-4.8) Monocytes # (Auto) 0.6 x10^3/uL (0.0-1.1) Eosinophils # (Auto) 0.3 x10^3/uL (0.0-0.7) Basophils # (Auto) 0.0 x10^3/uL (0.0-0.2) Sodium Level 138 mmol/L (136-145) Potassium Level 3.8 mmol/L (3.5-5.1) Chloride Level 102 mmol/L (98-107) Carbon Dioxide Level 28 mmol/L (21-32) Anion Gap 8 (6-14) Blood Urea Nitrogen 12 mg/dL (8-26) Creatinine 1.0 mg/dL (0.7-1.3) Estimated GFR (Cockcroft-Gault) 101.2 Glucose Level 84 mg/dL (70-99) Calcium Level 9.1 mg/dL (8.5-10.1) Treponema pallidum Antibody Nonreactive (Nonreactive) Assessment and Plan Assessmemt and Plan Problems Medical Problems: (1) Left hydrocele Status: Acute (2) Swelling of scrotum Status: Acute Comment Review of Relevant I have reviewed the following items david (where applicable) has been applied. Labs Laboratory Tests Test 11/02/17 04:00 11/03/17 05:08 White Blood Count 9.9 x10^3/uL (4.0-11.0) 8.1 x10^3/uL (4.0-11.0) Red Blood Count 4.34 x10^6/uL (4.30-5.70) 4.52 x10^6/uL (4.30-5.70) Hemoglobin 13.7 g/dL (13.0-17.5) 13.7 g/dL (13.0-17.5) Hematocrit 38.6 % (39.0-53.0) 40.2 % (39.0-53.0) Mean Corpuscular Volume 89 fL (79-100) 89 fL (79-100) Mean Corpuscular Hemoglobin 32 pg (25-35) 30 pg (25-35) Mean Corpuscular Hemoglobin Concent 36 g/dL (31-37) 34 g/dL (31-37) Red Cell Distribution Width 12.7 % (11.5-14.5) 12.8 % (11.5-14.5) Platelet Count 165 x10^3/uL (140-400) 185 x10^3/uL (140-400) Neutrophils (%) (Auto) 66 % (31-73) 67 % (31-73) Lymphocytes (%) (Auto) 21 % (24-48) 21 % (24-48) Monocytes (%) (Auto) 9 % (0-9) 8 % (0-9) Eosinophils (%) (Auto) 4 % (0-3) 4 % (0-3) Basophils (%) (Auto) 0 % (0-3) 0 % (0-3) Neutrophils # (Auto) 6.6 x10^3uL (1.8-7.7) 5.4 x10^3uL (1.8-7.7) Lymphocytes # (Auto) 2.0 x10^3/uL (1.0-4.8) 1.7 x10^3/uL (1.0-4.8) Monocytes # (Auto) 0.9 x10^3/uL (0.0-1.1) 0.6 x10^3/uL (0.0-1.1) Eosinophils # (Auto) 0.4 x10^3/uL (0.0-0.7) 0.3 x10^3/uL (0.0-0.7) Basophils # (Auto) 0.0 x10^3/uL (0.0-0.2) 0.0 x10^3/uL (0.0-0.2) Sodium Level 138 mmol/L (136-145) 138 mmol/L (136-145) Potassium Level 4.0 mmol/L (3.5-5.1) 3.8 mmol/L (3.5-5.1) Chloride Level 105 mmol/L (98-107) 102 mmol/L (98-107) Carbon Dioxide Level 28 mmol/L (21-32) 28 mmol/L (21-32) Anion Gap 5 (6-14) 8 (6-14) Blood Urea Nitrogen 13 mg/dL (8-26) 12 mg/dL (8-26) Creatinine 1.0 mg/dL (0.7-1.3) 1.0 mg/dL (0.7-1.3) Estimated GFR (Cockcroft-Gault) 101.2 101.2 Glucose Level 88 mg/dL (70-99) 84 mg/dL (70-99) Calcium Level 8.3 mg/dL (8.5-10.1) 9.1 mg/dL (8.5-10.1) Treponema pallidum Antibody Nonreactive (Nonreactive) Laboratory Tests Test 11/03/17 05:08 White Blood Count 8.1 x10^3/uL (4.0-11.0) Red Blood Count 4.52 x10^6/uL (4.30-5.70) Hemoglobin 13.7 g/dL (13.0-17.5) Hematocrit 40.2 % (39.0-53.0) Mean Corpuscular Volume 89 fL (79-100) Mean Corpuscular Hemoglobin 30 pg (25-35) Mean Corpuscular Hemoglobin Concent 34 g/dL (31-37) Red Cell Distribution Width 12.8 % (11.5-14.5) Platelet Count 185 x10^3/uL (140-400) Neutrophils (%) (Auto) 67 % (31-73) Lymphocytes (%) (Auto) 21 % (24-48) Monocytes (%) (Auto) 8 % (0-9) Eosinophils (%) (Auto) 4 % (0-3) Basophils (%) (Auto) 0 % (0-3) Neutrophils # (Auto) 5.4 x10^3uL (1.8-7.7) Lymphocytes # (Auto) 1.7 x10^3/uL (1.0-4.8) Monocytes # (Auto) 0.6 x10^3/uL (0.0-1.1) Eosinophils # (Auto) 0.3 x10^3/uL (0.0-0.7) Basophils # (Auto) 0.0 x10^3/uL (0.0-0.2) Sodium Level 138 mmol/L (136-145) Potassium Level 3.8 mmol/L (3.5-5.1) Chloride Level 102 mmol/L (98-107) Carbon Dioxide Level 28 mmol/L (21-32) Anion Gap 8 (6-14) Blood Urea Nitrogen 12 mg/dL (8-26) Creatinine 1.0 mg/dL (0.7-1.3) Estimated GFR (Cockcroft-Gault) 101.2 Glucose Level 84 mg/dL (70-99) Calcium Level 9.1 mg/dL (8.5-10.1) Treponema pallidum Antibody Nonreactive (Nonreactive) Microbiology 11/01/17 Blood Culture - Preliminary, Resulted NO GROWTH AFTER 2 DAYS Medications Current Medications Sodium Chloride 1,000 ml @ 1,000 mls/hr 1X ONCE IV Last administered on at 09:48; Start 11/01/17 at 09:00; Stop 11/01/17 at 09:59; Status DC Morphine Sulfate (Morphine Sulfate) 4 mg 1X ONCE IV Last administered on at 09:39; Start 11/01/17 at 09:00; Stop 11/01/17 at 09:01; Status DC Ondansetron HCl (Zofran) 4 mg 1X ONCE IV Last administered on 11/01/17at 09:40 ; Start 11/01/17 at 09:30; Stop 11/01/17 at 09:31; Status DC Piperacillin Sod/ Tazobactam Sod 3.375 gm/Sodium Chloride 50 ml @ 100 mls/hr 1X ONCE IV Last administered on 11/01/17at 10:39; Start 11/01/17 at 10:15; Stop 11/01/17 at 10:44; Status DC Morphine Sulfate (Morphine Sulfate) 4 mg 1X ONCE IV Last administered on at 12:30; Start 11/01/17 at 10:30; Stop 11/01/17 at 10:31; Status DC Ondansetron HCl (Zofran) 4 mg PRN Q8HRS PRN IV NAUSEA/VOMITING; Start 11/01/17 at 11:45; Stop 11/01/17 at 12:01; Status DC Morphine Sulfate (Morphine Sulfate) 4 mg PRN Q2HR PRN IV PAIN Last administered on 11/01/17at 21:15; Start 11/01/17 at 11:45; Stop 11/02/17 at 11:44 ; Status DC Ondansetron HCl (Zofran) 4 mg PRN Q6HRS PRN IV NAUSEA/VOMITING; Start 11/01/17 at 12:00 Piperacillin Sod/ Tazobactam Sod (Zosyn Per Pharmacy) 1 each PRN DAILY PRN MC SEE COMMENTS; Start 11/01/17 at 12:00; Status UNV Oxycodone/ Acetaminophen (Percocet 5/325) 1 tab PRN Q4HRS PRN PO SEVERE PAIN Last administered on 11/03/17at 13:00; Start 11/01/17 at 12:00 Acetaminophen (Tylenol) 500 mg PRN Q6HRS PRN PO MILD PAIN / TEMP; Start at 12:00 Naproxen (Naprosyn) 500 mg BID PO Last administered on 11/03/17at 08:56; Start 11/01/17 at 12:00 Acetaminophen/ Hydrocodone Bitart (Lortab 5/325) 1 tab PRN Q6HRS PRN PO MODERATE PAIN; Start 11/01/17 at 12:15 Ondansetron HCl (Zofran Odt) 4 mg BID PRN PO NAUSEA/VOMITING; Start 11/01/17 at 12:15 Pantoprazole Sodium (Protonix) 40 mg DAILYAC PO Last administered on 11/03/17at 08:54; Start 11/02/17 at 07:30 Piperacillin Sod/ Tazobactam Sod 3.375 gm/Sodium Chloride 50 ml @ 100 mls/hr Q6HRS IV Last administered on 11/02/17at 05:57; Start 11/01/17 at 18:00; Stop at 11:21; Status DC Ceftriaxone Sodium 1 gm/ Dextrose 50 ml @ 100 mls/hr Q24H IV ; Start 11/02/17 at 11:30; Status UNV Linezolid (Zyvox) 600 mg BID PO Last administered on 11/03/17at 08:55; Start at 12:00 Metronidazole (Flagyl) 1,000 mg Q12HR PO Last administered on 11/03/17at 08:55; Start 11/02/17 at 12:00 Ceftriaxone Sodium (Rocephin) 1 gm Q24H IVP Last administered on 11/03/17at 13: 00; Start 11/02/17 at 12:00 Doxycycline Hyclate (Vibra-Tab) 100 mg BID PO Last administered on 11/03/17at 08 :55; Start 11/02/17 at 13:00 Lactobacillus Rhamnosus (Culturelle) 1 cap BID PO Last administered on at 08:55; Start 11/02/17 at 21:00 Lidocaine HCl (Xylocaine 1% Pf 30ml Vial) 30 ml 1X ONCE INJ ; Start 11/03/17 at 10:30; Stop 11/03/17 at 10:31; Status DC Active Scripts Active Prilosec Otc (Omeprazole Magnesium) 20 Mg Tablet.dr 1 Tab PO DAILY Zofran Odt (Ondansetron) 4 Mg Tab.rapdis 4 Mg PO BID PRN [place] 5-325 Tablet (Acetaminophen/Hydrocodone Bitart) 1 Each Tablet 1 Tab PO PRN Q6HRS PRN Vitals/I & O Vital Sign - Last 24 Hours 11/02/17 11/02/17 11/02/17 11/02/17 15:00 16:19 19:00 20:00 Temp 97.7 98.3 97.7 98.3 Pulse 73 67 Resp 16 16 16 B/P (MAP) 113/63 (80) 113/65 (81) Pulse Ox 97 98 O2 Delivery Room Air Room Air Room Air Room Air 11/02/17 11/02/17 11/02/17 11/03/17 20:31 21:31 23:00 03:00 Temp 98.1 98.0 98.1 98.0 Pulse 56 67 Resp 18 18 16 16 B/P (MAP) 115/65 (82) 111/58 (75) Pulse Ox 98 97 95 O2 Delivery Room Air Room Air Room Air Room Air 11/03/17 11/03/17 11/03/17 11/03/17 07:00 08:00 11:00 12:02 Temp 98.2 98.1 98.2 98.1 Pulse 65 69 Resp 18 18 B/P (MAP) 117/69 (85) 122/75 (91) Pulse Ox 99 98 O2 Delivery Room Air Room Air Room Air Room Air 11/03/17 13:00 O2 Delivery Room Air Intake and Output 11/02/17 11/02/17 11/03/17 15:00 23:00 07:00 Intake Total 50 ml 200 ml Output Total 1 ml Balance 50 ml -1 ml 200 ml PORFIRIO STARK MD Nov 03, 2017 14:01
[2017-11-03 15:00] VITALS: BP 121/80
[2017-11-03 19:30] VITALS: BP 124/67
[2017-11-03] MEDS: HYDROcodone/APAP 5/325MG 1 TAB TABLET PO PRN (20:13)
[2017-11-03 23:18] VITALS: BP 133/63
[2017-11-04 03:38] VITALS: BP 126/62
[2017-11-04] MEDS: oxyCODONE/APAP 5/325 1 TAB TABLET PO PRN (06:03)
[2017-11-04] MEDS: PANTOPRAZOLE 40 MG TABLET.DR. PO SCH (06:03)
[2017-11-04 07:00] VITALS: BP 93/49
[2017-11-04] MEDS: metroNIDAZOLE 500 MG TABLET PO SCH (09:00)
[2017-11-04] MEDS: LINEZOLID 600 MG TABLET PO SCH (09:01)
[2017-11-04] MEDS: NAPROXEN 500 MG TABLET PO SCH (09:01)
[2017-11-04] MEDS: LACTOBACILLUS RHAMNOSUS GG 1 CAPSULE. PO SCH (09:01)
--- NOTE | 2017-11-04 10:02 | PDOC ---
SUBJECTIVE Subjective Patient's pain is very much improved and he is ready to go home. He has noticed just a small amount of yellowish drainage from the I and D wound. He would like to go home today and is willing to learn how to do dressing changes himself. OBJECTIVE Objective Physical Exam: General appearance: Alert and Oriented Head: Normocephalic, without obvious abnormality Eyes: conjunctivae/corneas clear. PERRL, EOM's intact. Fundi benign Lungs: regular respirations, non labored breathing. Pelvic: two small scrotal wounds with tunnels less than 1 cm. Very small amount of sero-sanguinous drainage noted with no noticeable odor or signs or symptoms of infection. DINING ROOM ATTENDANT CAFETERIA instructed patient in dressing change using clean technique. Pt washed his hands first, then removed old dressing, decontaminated his hands and then washed his wound out with NS. 1 packing strip was applied by patient using cotton-tipped applicator and the second was applied by DINING ROOM ATTENDANT CAFETERIA Pito. Guaze and mesh underwear applied overtop of scrotal wound. Pt demonstrated good technique and ability to understand clean dressing change technique. Vital Signs Vital Signs Date Time Temp Pulse Resp B/P (MAP) Pulse Ox O2 Delivery O2 Flow Rate FiO2 11/04/17 07:00 98.4 63 16 93/49 (64) 97 Room Air 98.4 11/04/17 06:03 Room Air 11/04/17 03:38 98.3 72 18 126/62 (83) 98 Room Air 98.3 11/03/17 23:18 98.2 68 18 133/63 (86) 98 Room Air 98.2 11/03/17 21:13 Room Air 11/03/17 20:13 Room Air 11/03/17 20:00 Room Air 11/03/17 19:30 98.3 76 18 124/67 (86) 94 Room Air 98.3 11/03/17 18:30 Room Air 11/03/17 17:32 Room Air 11/03/17 15:00 98.1 69 18 121/80 (94) 99 Room Air 98.1 11/03/17 13:00 Room Air 11/03/17 12:02 Room Air 11/03/17 11:00 98.1 69 18 122/75 (91) 98 Room Air 98.1 I & O Intake and Output 11/04/17 07:00 Intake Total 360 ml Output Total 0 ml Balance 360 ml Intake Oral 360 ml Output Urine Total 0 ml # Voids 5 # Bowel Movements 1 PHYSICAL EXAM Physical Exam Physical Exam: General appearance: Alert and Oriented Head: Normocephalic, without obvious abnormality Eyes: conjunctivae/corneas clear. PERRL, EOM's intact. Fundi benign Lungs: regular respirations, non labored breathing. Pelvic: two small scrotal wounds with tunnels less than 1 cm. Very small amount of sero-sanguinous drainage noted with no noticeable odor or signs or symptoms of infection. DINING ROOM ATTENDANT CAFETERIA instructed patient in dressing change using clean technique. Pt washed his hands first, then removed old dressing, decontaminated his hands and then washed his wound out with NS. 1 packing strip was applied by patient using cotton-tipped applicator and the second was applied by DINING ROOM ATTENDANT CAFETERIA Pito. Guaze and mesh underwear applied overtop of scrotal wound. Pt demonstrated good technique and ability to understand clean dressing change technique. ASSESSMENT/PLAN Assessment/Plan Pelvic: two small scrotal wounds with tunnels less than 1 cm. Very small amount of sero-sanguinous drainage noted with no noticeable odor or signs or symptoms of infection. DINING ROOM ATTENDANT CAFETERIA instructed patient in dressing change using clean technique. Pt washed his hands first, then removed old dressing, decontaminated his hands and then washed his wound out with NS. 1 packing strip was applied by patient using cotton-tipped applicator and the second was applied by DINING ROOM ATTENDANT CAFETERIA Pito. Guaze and mesh underwear applied overtop of scrotal wound. Pt demonstrated good technique. 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 Pt still has follow up appointment with [facility]/Dr Garza. A follow up appointment has been arranged for patient on 11/16/17 at 1500. Pt still has appointment card and new patient paperwork. All questions answered. Ok for patient to discharge home whenever medical team is ready as long as he discharges home with enough oral antibiotics to get him through until appointment with Dr. Garza on 11/16/17. Pt should also discharge home with enough wound care supplies. He should only have to pack those two small tunnel wounds for a few more days before he can just apply guaze. Dressing changes should occur after patient has showered and only once per day. GAYATHRI WHITAKER APRN Nov 04, 2017 10:02
--- NOTE | 2017-11-04 10:39 | PDOC ---
PROGRESS NOTES Chief Complaint Chief Complaint left scrotal cellulitis, wo abscess Small left hydrocele Left scrotal wall thickening Left inguinal lymph node enlargement early developing abscess Lt epididymitis Urine + trichomonas Pt underwent I and D 11/03 with purulent material C/S pending plan: fu with uro, ID consulted, on ceftriaxone, flagyl, doxy, zyvox talked to nurse if can do wound cx i and d with uro yesterday plan dc soon with po abx for 2 weeks pain control History of Present Illness History of Present Illness ROS: no fever, chills, sob or chest pain left scrotum swelling with a small opening, better as per pt, still induration, tenderness Vitals Vitals Vital Signs Date Time Temp Pulse Resp B/P (MAP) Pulse Ox O2 Delivery O2 Flow Rate FiO2 11/04/17 07:00 98.4 63 16 93/49 (64) 97 Room Air 98.4 Physical Exam Physical Exam GENERAL: Alert, oriented x 3 male, resting in bed, in no acute distress. HEENT: Normocephalic, atraumatic and anicteric. No thrush. NECK: Supple. No JVD. LUNGS: Clear bilaterally. No wheezing. HEART: S1 and S2 present. No gallops or murmurs. ABDOMEN: Soft, nontender and nondistended. EXTREMITIES: No lower quadrant pain. DERMATOLOGICAL: No generalized rash except for dry scab, right thigh without any evidence of purulence, surrounding cellulitis or underlying abscess. GENITOURINARY: Scrotum is swollen, especially over the left hemiscrotal area, indurated, tender and small crust with drainage noted. No purulence was able to be expressed today. No erythema, no crepitus and no fluctuance. Left groin lymph node present, possible epididymal swelling. No penile drainage or GUD noted. Testes appears normal on palpation. General: Alert, Oriented X3, Cooperative, No acute distress Heart: Regular rate, Normal S1, Normal S2 Lungs: Clear Abdomen: Normal bowel sounds, Soft, No tenderness, No hepatosplenomegaly, No masses Extremities: No clubbing, No cyanosis, No edema, Normal pulses, No tenderness/ swelling Skin: No rashes Assessment and Plan Assessmemt and Plan Problems Medical Problems: (1) Left hydrocele Status: Acute (2) Swelling of scrotum Status: Acute Comment Review of Relevant I have reviewed the following items david (where applicable) has been applied. Labs Laboratory Tests Test 11/03/17 05:08 White Blood Count 8.1 x10^3/uL (4.0-11.0) Red Blood Count 4.52 x10^6/uL (4.30-5.70) Hemoglobin 13.7 g/dL (13.0-17.5) Hematocrit 40.2 % (39.0-53.0) Mean Corpuscular Volume 89 fL (79-100) Mean Corpuscular Hemoglobin 30 pg (25-35) Mean Corpuscular Hemoglobin Concent 34 g/dL (31-37) Red Cell Distribution Width 12.8 % (11.5-14.5) Platelet Count 185 x10^3/uL (140-400) Neutrophils (%) (Auto) 67 % (31-73) Lymphocytes (%) (Auto) 21 % (24-48) Monocytes (%) (Auto) 8 % (0-9) Eosinophils (%) (Auto) 4 % (0-3) Basophils (%) (Auto) 0 % (0-3) Neutrophils # (Auto) 5.4 x10^3uL (1.8-7.7) Lymphocytes # (Auto) 1.7 x10^3/uL (1.0-4.8) Monocytes # (Auto) 0.6 x10^3/uL (0.0-1.1) Eosinophils # (Auto) 0.3 x10^3/uL (0.0-0.7) Basophils # (Auto) 0.0 x10^3/uL (0.0-0.2) Sodium Level 138 mmol/L (136-145) Potassium Level 3.8 mmol/L (3.5-5.1) Chloride Level 102 mmol/L (98-107) Carbon Dioxide Level 28 mmol/L (21-32) Anion Gap 8 (6-14) Blood Urea Nitrogen 12 mg/dL (8-26) Creatinine 1.0 mg/dL (0.7-1.3) Estimated GFR (Cockcroft-Gault) 101.2 Glucose Level 84 mg/dL (70-99) Calcium Level 9.1 mg/dL (8.5-10.1) Treponema pallidum Antibody Nonreactive (Nonreactive) Microbiology 11/02/17 Blood Culture - Preliminary, Resulted NO GROWTH AFTER 1 DAY Medications Current Medications Sodium Chloride 1,000 ml @ 1,000 mls/hr 1X ONCE IV Last administered on at 09:48; Start 11/01/17 at 09:00; Stop 11/01/17 at 09:59; Status DC Morphine Sulfate (Morphine Sulfate) 4 mg 1X ONCE IV Last administered on at 09:39; Start 11/01/17 at 09:00; Stop 11/01/17 at 09:01; Status DC Ondansetron HCl (Zofran) 4 mg 1X ONCE IV Last administered on 11/01/17at 09:40 ; Start 11/01/17 at 09:30; Stop 11/01/17 at 09:31; Status DC Piperacillin Sod/ Tazobactam Sod 3.375 gm/Sodium Chloride 50 ml @ 100 mls/hr 1X ONCE IV Last administered on 11/01/17at 10:39; Start 11/01/17 at 10:15; Stop 11/01/17 at 10:44; Status DC Morphine Sulfate (Morphine Sulfate) 4 mg 1X ONCE IV Last administered on at 12:30; Start 11/01/17 at 10:30; Stop 11/01/17 at 10:31; Status DC Ondansetron HCl (Zofran) 4 mg PRN Q8HRS PRN IV NAUSEA/VOMITING; Start 11/01/17 at 11:45; Stop 11/01/17 at 12:01; Status DC Morphine Sulfate (Morphine Sulfate) 4 mg PRN Q2HR PRN IV PAIN Last administered on 11/01/17at 21:15; Start 11/01/17 at 11:45; Stop 11/02/17 at 11:44 ; Status DC Ondansetron HCl (Zofran) 4 mg PRN Q6HRS PRN IV NAUSEA/VOMITING; Start 11/01/17 at 12:00 Piperacillin Sod/ Tazobactam Sod (Zosyn Per Pharmacy) 1 each PRN DAILY PRN [facility] SEE COMMENTS; Start 11/01/17 at 12:00; Status UNV Oxycodone/ Acetaminophen (Percocet 5/325) 1 tab PRN Q4HRS PRN PO SEVERE PAIN Last administered on 11/04/17at 06:03; Start 11/01/17 at 12:00 Acetaminophen (Tylenol) 500 mg PRN Q6HRS PRN PO MILD PAIN / TEMP; Start at 12:00 Naproxen (Naprosyn) 500 mg BID PO Last administered on 11/04/17at 09:01; Start 11/01/17 at 12:00 Acetaminophen/ Hydrocodone Bitart (Lortab 5/325) 1 tab PRN Q6HRS PRN PO MODERATE PAIN Last administered on 11/03/17at 20:13; Start 11/01/17 at 12:15 Ondansetron HCl (Zofran Odt) 4 mg BID PRN PO NAUSEA/VOMITING; Start 11/01/17 at 12:15 Pantoprazole Sodium (Protonix) 40 mg DAILYAC PO Last administered on 11/04/17at 06:03; Start 11/02/17 at 07:30 Piperacillin Sod/ Tazobactam Sod 3.375 gm/Sodium Chloride 50 ml @ 100 mls/hr Q6HRS IV Last administered on 11/02/17at 05:57; Start 11/01/17 at 18:00; Stop at 11:21; Status DC Ceftriaxone Sodium 1 gm/ Dextrose 50 ml @ 100 mls/hr Q24H IV ; Start 11/02/17 at 11:30; Status UNV Linezolid (Zyvox) 600 mg BID PO Last administered on 11/04/17at 09:01; Start at 12:00 Metronidazole (Flagyl) 1,000 mg Q12HR PO Last administered on 11/04/17at 09:00; Start 11/02/17 at 12:00 Ceftriaxone Sodium (Rocephin) 1 gm Q24H IVP Last administered on 11/03/17at 13: 00; Start 11/02/17 at 12:00 Doxycycline Hyclate (Vibra-Tab) 100 mg BID PO Last administered on 11/03/17at 20 :13; Start 11/02/17 at 13:00 Lactobacillus Rhamnosus (Culturelle) 1 cap BID PO Last administered on at 09:01; Start 11/02/17 at 21:00 Lidocaine HCl (Xylocaine 1% Pf 30ml Vial) 30 ml 1X ONCE INJ ; Start 11/03/17 at 10:30; Stop 11/03/17 at 10:31; Status DC Active Scripts Active Prilosec Otc (Omeprazole Magnesium) 20 Mg Tablet. 1 Tab PO DAILY Zofran Odt (Ondansetron) 4 Mg Tab.rapdis 4 Mg PO BID PRN [place] 5-325 Tablet (Acetaminophen/Hydrocodone Bitart) 1 Each Tablet 1 Tab PO PRN Q6HRS PRN Vitals/I & O Vital Sign - Last 24 Hours 11/03/17 11/03/17 11/03/17 11/03/17 11:00 12:02 13:00 15:00 Temp 98.1 98.1 98.1 98.1 Pulse 69 69 Resp 18 18 B/P (MAP) 122/75 (91) 121/80 (94) Pulse Ox 98 99 O2 Delivery Room Air Room Air Room Air Room Air 11/03/17 11/03/17 11/03/17 11/03/17 17:32 18:30 19:30 20:00 Temp 98.3 98.3 Pulse 76 Resp 18 B/P (MAP) 124/67 (86) Pulse Ox 94 O2 Delivery Room Air Room Air Room Air Room Air 11/03/17 11/03/17 11/03/17 11/04/17 20:13 21:13 23:18 03:38 Temp 98.2 98.3 98.2 98.3 Pulse 68 72 Resp 18 18 B/P (MAP) 133/63 (86) 126/62 (83) Pulse Ox 98 98 O2 Delivery Room Air Room Air Room Air Room Air 11/04/17 11/04/17 06:03 07:00 Temp 98.4 98.4 Pulse 63 Resp 16 B/P (MAP) 93/49 (64) Pulse Ox 97 O2 Delivery Room Air Room Air Intake and Output 11/03/17 11/03/17 11/04/17 15:00 23:00 07:00 Intake Total 360 ml Output Total 0 ml Balance 360 ml TAM WANG MD Nov 04, 2017 10:39
[2017-11-04 11:00] VITALS: BP 110/58
--- NOTE | 2017-11-04 11:41 | PDOC ---
Infectious Disease Note Subjective: Subjective Pt feels much better, wants to be dc today no f/c/n/v/d/worsening scrotal swelling or pain underwent I and D 11/03 with purulent material C/S pending today ROS: ROS neg otherwise Vital Signs: Vital Signs Vital Signs Date Time Temp Pulse Resp B/P (MAP) Pulse Ox O2 Delivery O2 Flow Rate FiO2 11/04/17 08:00 Room Air 11/04/17 07:00 98.4 63 16 93/49 (64) 97 98.4 Physical Exam: PHYSICAL EXAM GENERAL: Alert, oriented x 3 male, resting in bed, in no acute distress. HEENT: Normocephalic, atraumatic and anicteric. No thrush. NECK: Supple. No JVD. LUNGS: Clear bilaterally. No wheezing. HEART: S1 and S2 present. No gallops or murmurs. ABDOMEN: Soft, nontender and nondistended. EXTREMITIES: No lower quadrant pain. DERMATOLOGICAL: No generalized rash except for dry scab, right thigh without any evidence of purulence, surrounding cellulitis or underlying abscess. GENITOURINARY: Scrotum is swollen, especially over the left hemiscrotal area, indurated, tender and small crust with drainage noted. No purulence was able to be expressed today. No erythema, no crepitus and no fluctuance. Left groin lymph node present, possible epididymal swelling. No penile drainage or GUD noted. Testes appears normal on palpation. Medications: Inpatient Meds: Current Medications Medications (Trade) Dose Ordered Sig/Will Start Time Stop Time Status Last Admin Dose Admin Acetaminophen (Tylenol) 500 mg PRN Q6HRS PRN 11/01/17 12:00 Acetaminophen/ Hydrocodone Bitart (Lortab 5/325) 1 tab PRN Q6HRS PRN 11/01/17 12:15 11/03/17 20:13 1 TAB Ceftriaxone Sodium 1 gm/ Dextrose 50 ml @ 100 mls/hr Q24H 11/02/17 11:30 UNV Ceftriaxone Sodium (Rocephin) 1 gm Q24H 11/02/17 12:00 11/03/17 13:00 1 GM Doxycycline Hyclate (Vibra-Tab) 100 mg BID 11/02/17 13:00 11/03/17 20:13 100 MG Lactobacillus Rhamnosus (Culturelle) 1 cap BID 9/17/18 21:00 11/04/17 09:01 1 CAP Lidocaine HCl (Xylocaine 1% Pf 30ml Vial) 30 ml 1X ONCE 11/03/17 10:30 11/03/17 10:31 DC Linezolid (Zyvox) 600 mg BID 11/02/17 12:00 11/04/17 09:01 600 MG Metronidazole (Flagyl) 1,000 mg Q12HR 11/02/17 12:00 11/04/17 09:00 1,000 MG Morphine Sulfate (Morphine Sulfate) 4 mg PRN Q2HR PRN 11/01/17 11:45 11/02/17 11:44 DC 11/01/17 21:15 4 MG Naproxen (Naprosyn) 500 mg BID 11/01/17 12:00 11/04/17 09:01 500 MG Ondansetron HCl (Zofran Odt) 4 mg BID PRN 11/01/17 12:15 Ondansetron HCl (Zofran) 4 mg PRN Q6HRS PRN 11/01/17 12:00 Oxycodone/ Acetaminophen (Percocet 5/325) 1 tab PRN Q4HRS PRN 11/01/17 12:00 11/04/17 06:03 1 TAB Pantoprazole Sodium (Protonix) 40 mg DAILYAC 11/02/17 07:30 11/04/17 06:03 40 MG Piperacillin Sod/ Tazobactam Sod (Zosyn Per Pharmacy) 1 each PRN DAILY PRN 11/01/17 12:00 UNV Piperacillin Sod/ Tazobactam Sod 3.375 gm/Sodium Chloride 50 ml @ 100 mls/hr Q6HRS 11/01/17 18:00 11/02/17 11:21 DC 11/02/17 05:57 100 MLS/HR Sodium Chloride 1,000 ml @ 1,000 mls/hr 1X ONCE 11/01/17 09:00 11/01/17 09:59 DC 11/01/17 09:48 1,000 MLS/HR Labs: Micro BC neg so far Objective: Assessment: Lt scrotal abscess s/p I and D Mild Lt hydrocoele Urine + trichomonas Possible left epididymal thickening and tenderness. Plan: Plan of Care DC Ceftriaxone on discharge dc on augmentin and doxycycline for 2 weeks pending cults results local wound care per urology f/u urine naat chlamydia and gonorrhea f/u with us in 2 weeks MINERVA GREER MD Nov 04, 2017 11:41
[2017-11-04] MEDS: cefTRIAXone IV Push 1 GM VIAL. IVP SCH (12:00)
[2017-11-04] MEDS: DOXYCYCLINE HYCLATE 100 MG TABLET PO SCH (13:16)
[2017-11-04] MEDS: HYDROcodone/APAP 5/325MG 1 TAB TABLET PO PRN (13:17)
--- NOTE | 2017-11-04 13:17 | PDOC3 ---
Discharge Summary Date of Admission: Nov 01, 2017 Date of Discharge: Nov 04, 2017 Follow-Up: 3-5 days Admitting Diagnosis comment: discharge diagnosis Chief Complaint left scrotal cellulitis, w abscess Small left hydrocele Left scrotal wall thickening Left inguinal lymph node enlargement early developing abscess Lt epididymitis Urine + trichomonas Pt underwent I and D 11/03 with purulent material C/S pending plan: fu with uro, ID consulted, on augmentin doxy, i and d with uro plan dc soon with po abx for 2 weeks pain control History of Present Illness History of Present Illness ROS: no fever, chills, sob or chest pain left scrotum swelling with a small opening, better as per pt, Vitals Vitals Vital Signs Date Time Temp Pulse Resp B/P (MAP) Pulse Ox O2 Delivery O2 Flow Rate FiO2 11/04/17 07:00 98.4 63 16 93/49 (64) 97 Room Air 98.4 Physical Exam Physical Exam GENERAL: Alert, oriented x 3 male, resting in bed, in no acute distress. HEENT: Normocephalic, atraumatic and anicteric. No thrush. NECK: Supple. No JVD. LUNGS: Clear bilaterally. No wheezing. HEART: S1 and S2 present. No gallops or murmurs. ABDOMEN: Soft, nontender and nondistended. EXTREMITIES: No lower quadrant pain. DERMATOLOGICAL: No generalized rash except for dry scab, right thigh without any evidence of purulence, surrounding cellulitis or underlying abscess. General: Alert, Oriented X3, Cooperative, No acute distress Heart: Regular rate, Normal S1, Normal S2 Lungs: Clear Abdomen: Normal bowel sounds, Soft, No tenderness, No hepatosplenomegaly, No masses Extremities: No clubbing, No cyanosis, No edema, Normal pulses, No tenderness/ swelling Skin: No rashes DC Ceftriaxone on discharge dc on augmentin and doxycycline for 2 weeks pending cults results local wound care per urology FINAL DIAGNOSIS Problems Medical Problems: (1) Left hydrocele Status: Acute (2) Swelling of scrotum Status: Acute Brief Hospital Course Mr. Yi is a 37 old [sex] who presented with [scrotal abscess ] CONDITION AT DISCHARGE: Improved Discharge Medications Current Medications Sodium Chloride 1,000 ml @ 1,000 mls/hr 1X ONCE IV Last administered on at 09:48; Start 11/01/17 at 09:00; Stop 11/01/17 at 09:59; Status DC Morphine Sulfate (Morphine Sulfate) 4 mg 1X ONCE IV Last administered on at 09:39; Start 11/01/17 at 09:00; Stop 11/01/17 at 09:01; Status DC Ondansetron HCl (Zofran) 4 mg 1X ONCE IV Last administered on 11/01/17at 09:40 ; Start 11/01/17 at 09:30; Stop 11/01/17 at 09:31; Status DC Piperacillin Sod/ Tazobactam Sod 3.375 gm/Sodium Chloride 50 ml @ 100 mls/hr 1X ONCE IV Last administered on 11/01/17at 10:39; Start 11/01/17 at 10:15; Stop 11/01/17 at 10:44; Status DC Morphine Sulfate (Morphine Sulfate) 4 mg 1X ONCE IV Last administered on at 12:30; Start 11/01/17 at 10:30; Stop 11/01/17 at 10:31; Status DC Ondansetron HCl (Zofran) 4 mg PRN Q8HRS PRN IV NAUSEA/VOMITING; Start 11/01/17 at 11:45; Stop 11/01/17 at 12:01; Status DC Morphine Sulfate (Morphine Sulfate) 4 mg PRN Q2HR PRN IV PAIN Last administered on 11/01/17at 21:15; Start 11/01/17 at 11:45; Stop 11/02/17 at 11:44 ; Status DC Ondansetron HCl (Zofran) 4 mg PRN Q6HRS PRN IV NAUSEA/VOMITING; Start 11/01/17 at 12:00 Piperacillin Sod/ Tazobactam Sod (Zosyn Per Pharmacy) 1 each PRN DAILY PRN [facility] SEE COMMENTS; Start 11/01/17 at 12:00; Status UNV Oxycodone/ Acetaminophen (Percocet 5/325) 1 tab PRN Q4HRS PRN PO SEVERE PAIN Last administered on 11/04/17at 06:03; Start 11/01/17 at 12:00 Acetaminophen (Tylenol) 500 mg PRN Q6HRS PRN PO MILD PAIN / TEMP; Start at 12:00 Naproxen (Naprosyn) 500 mg BID PO Last administered on 11/04/17at 09:01; Start 11/01/17 at 12:00 Acetaminophen/ Hydrocodone Bitart (Lortab 5/325) 1 tab PRN Q6HRS PRN PO MODERATE PAIN Last administered on 11/03/17at 20:13; Start 11/01/17 at 12:15 Ondansetron HCl (Zofran Odt) 4 mg BID PRN PO NAUSEA/VOMITING; Start 11/01/17 at 12:15 Pantoprazole Sodium (Protonix) 40 mg DAILYAC PO Last administered on 11/04/17at 06:03; Start 11/02/17 at 07:30 Piperacillin Sod/ Tazobactam Sod 3.375 gm/Sodium Chloride 50 ml @ 100 mls/hr Q6HRS IV Last administered on 11/02/17at 05:57; Start 11/01/17 at 18:00; Stop at 11:21; Status DC Ceftriaxone Sodium 1 gm/ Dextrose 50 ml @ 100 mls/hr Q24H IV ; Start 11/02/17 at 11:30; Status UNV Linezolid (Zyvox) 600 mg BID PO Last administered on 11/04/17at 09:01; Start at 12:00 Metronidazole (Flagyl) 1,000 mg Q12HR PO Last administered on 11/04/17at 09:00; Start 11/02/17 at 12:00 Ceftriaxone Sodium (Rocephin) 1 gm Q24H IVP Last administered on 11/03/17at 13: 00; Start 11/02/17 at 12:00 Doxycycline Hyclate (Vibra-Tab) 100 mg BID PO Last administered on 11/03/17at 20 :13; Start 11/02/17 at 13:00 Lactobacillus Rhamnosus (Culturelle) 1 cap BID PO Last administered on at 09:01; Start 11/02/17 at 21:00 Lidocaine HCl (Xylocaine 1% Pf 30ml Vial) 30 ml 1X ONCE INJ ; Start 11/03/17 at 10:30; Stop 11/03/17 at 10:31; Status DC Active Scripts Active Prilosec Otc (Omeprazole Magnesium) 20 Mg Tablet. 1 Tab PO DAILY Zofran Odt (Ondansetron) 4 Mg Tab.rapdis 4 Mg PO BID PRN [place] 5-325 Tablet (Acetaminophen/Hydrocodone Bitart) 1 Each Tablet 1 Tab PO PRN Q6HRS PRN Vital Signs Vital Signs Date Time Temp Pulse Resp B/P (MAP) Pulse Ox O2 Delivery O2 Flow Rate FiO2 11/04/17 11:00 98.2 57 16 110/58 (75) 100 Room Air 98.2 Labs Laboratory Tests Test 11/03/17 05:08 White Blood Count 8.1 x10^3/uL (4.0-11.0) Red Blood Count 4.52 x10^6/uL (4.30-5.70) Hemoglobin 13.7 g/dL (13.0-17.5) Hematocrit 40.2 % (39.0-53.0) Mean Corpuscular Volume 89 fL (79-100) Mean Corpuscular Hemoglobin 30 pg (25-35) Mean Corpuscular Hemoglobin Concent 34 g/dL (31-37) Red Cell Distribution Width 12.8 % (11.5-14.5) Platelet Count 185 x10^3/uL (140-400) Neutrophils (%) (Auto) 67 % (31-73) Lymphocytes (%) (Auto) 21 % (24-48) Monocytes (%) (Auto) 8 % (0-9) Eosinophils (%) (Auto) 4 % (0-3) Basophils (%) (Auto) 0 % (0-3) Neutrophils # (Auto) 5.4 x10^3uL (1.8-7.7) Lymphocytes # (Auto) 1.7 x10^3/uL (1.0-4.8) Monocytes # (Auto) 0.6 x10^3/uL (0.0-1.1) Eosinophils # (Auto) 0.3 x10^3/uL (0.0-0.7) Basophils # (Auto) 0.0 x10^3/uL (0.0-0.2) Sodium Level 138 mmol/L (136-145) Potassium Level 3.8 mmol/L (3.5-5.1) Chloride Level 102 mmol/L (98-107) Carbon Dioxide Level 28 mmol/L (21-32) Anion Gap 8 (6-14) Blood Urea Nitrogen 12 mg/dL (8-26) Creatinine 1.0 mg/dL (0.7-1.3) Estimated GFR (Cockcroft-Gault) 101.2 Glucose Level 84 mg/dL (70-99) Calcium Level 9.1 mg/dL (8.5-10.1) Treponema pallidum Antibody Nonreactive (Nonreactive) Allergies Allergies Coded Allergies Type Severity Reaction Last Updated Verified No Known Drug Allergies 07/21/14 No Disposition/Orders: D/C to Home Patient Instructions d/c planning 35 min TAM WANG MD Nov 04, 2017 13:17
--- NOTE | 2017-11-04 13:22 | DISCH ---
DISCHARGE INSTRUCTIONS Condition on Discharge Condition on Discharge: Stable Activity After Discharge Activity Instructions for Disc: Activity as tolerated Bathing Instructions: Shower-keep dressing dry Lifting Instructions after Dis: No heavy lifting, No pulling or pushing Exercise Instruction after Dis: Progress as tolerated Driving Instructions after Dis: Do not drive Weight Bearing Status after Di: Full weight bearing Diet after Discharge Diet after Discharge: Regular Checks after Discharge Checks after discharge: Check blood press - daily Contacting the DR. after DC Call your doctor for: If your condition worsens TAM WANG MD Nov 04, 2017 13:22
[2017-11-04] MEDS ORDERED: AMOX1TAB58 PO (13:24)
[2017-11-04] MEDS ORDERED: NAPR-683 PO (13:24)
== END 2017-11-04 16:03 | disposition home or self-care (01) | DRG 728 ==
LOC: ER 08:23 → 4 NORTH 11:32
PROVIDERS: ADMIT Internal Medicine; ATTEND Internal Medicine
PROC: 0V95XZZ Drainage of Scrotum, External Approach (ICD-10-PCS; principal; 2017-11-03)
DX: N45.1 Epididymitis (principal); A59.9 Trichomoniasis, unspecified; N43.3 Hydrocele, unspecified; N50.89 Other specified disorders of the male genital organs; W57.XXXA Bitten or stung by nonvenomous insect and other nonvenomous arthropods, initial encounter; Y93.89 Activity, other specified; Y92.89 Other specified places as the place of occurrence of the external cause; Y99.8 Other external cause status; Z79.899 Other long term (current) drug therapy
CPT/HCPCS: 36415; 76705; 76870; 80048; 80053; 81001; 83605; 83735; 84484; 85025; 85651; 86592; 87040; 87070; 87491; 87591; 93005; 96361; 96365; 96375; J0696; J2270; J2405; J2543; J7030; 99285-25

== ENCOUNTER 2018-02-12 17:06 | Emergency (ER) | payer SELFPAY ==
[~2018-02-12] VITALS: Ht 180.3 cm; Wt 68.0 kg
[~2018-02-12 17:06] MED LIST changes: +AMOX1TAB58 PO; +HYDR-3164 PO; -HYDR-971 PO; +NAPR-683 PO
[2018-02-12 17:50] VITALS: BP 124/66
[2018-02-12] MEDS ORDERED: LIDOCAINE 1% PF 2 ML VIAL. ONE (18:28)
[2018-02-12] MEDS ORDERED: LIDOCAINE 1% PF 2 ML VIAL. INJ ONE (18:30)
[2018-02-12] MEDS ORDERED: HYDR-2761 PO (19:53)
[2018-02-12] MEDS ORDERED: CLIN150C14 PO (19:53)
[2018-02-12] MEDS ORDERED: DOXY100T PO (19:55)
--- NOTE | 2018-02-12 19:55 | PHYS DOC ---
Past Medical History Past Medical History: Abscess Past Surgical History: Other Additional Past Surgical Histo: abscess removal right axila Alcohol Use: None Drug Use: None Adult General Chief Complaint Chief Complaint: ABSCESS HPI HPI Patient is a 37 year old AA male who presents to the ER with complaints of painful, tender lumps in left axilla that drained bloody pus last night. He denies any fever, numbness, tingling, or injury to the area. Pt states the sx first began a week ago. He reports having a similar problem in his left groin earlier this year and reports that he had to have surgery to correct that problem. Review of Systems Review of Systems Constitutional: Denies fever or chills [] Respiratory: Denies cough or shortness of breath [] GI: Denies abdominal pain, nausea, or vomiting Musculoskeletal: Denies back pain or joint pain [] Integument: See HPI Neurologic: Denies headache, focal weakness or sensory changes [] Complete systems were reviewed and found to be within normal limits, except as documented in this note. Current Medications Current Medications Current Medications Medications (Trade) Dose Ordered Sig/Will Start Time Stop Time Status Last Admin Dose Admin Lidocaine HCl (Xylocaine-Mpf 1% 2ml Vial) 2 ml STK-MED ONCE 02/12/18 18:28 02/12/18 18:30 DC Allergies Allergies Allergies Coded Allergies Type Severity Reaction Last Updated Verified I S O L A T I O N *CONTACT* Allergy Unknown 11/09/17 Yes No Known Medication Allergies Allergy Unknown 11/09/17 Yes Physical Exam Physical Exam Constitutional: Well developed, well nourished, no acute distress, non-toxic appearance. [] HENT: Normocephalic, atraumatic, bilateral external ears normal, nose normal. [] Eyes: conjunctiva normal, no discharge. [] Skin: Warm, dry, no erythema, no warmth, no rash; diffuse swollen, tender, firm lumps noted in R axilla with 2 small areas draining bloody pus, no fluctuance noted consistent with abscess and hidradenitis suppurativa . [] Extremities: No cyanosis, no clubbing, ROM intact, no edema. [] Neurologic: Alert and oriented X 3, normal motor function, normal sensory function, no focal deficits noted. [] Psychologic: Affect normal, judgement normal, mood normal. [] Current Patient Data Vital Signs Vital Signs Date Time Temp Pulse Resp B/P (MAP) Pulse Ox O2 Delivery O2 Flow Rate FiO2 02/12/18 17:50 98.3 87 20 124/66 (85) 98 Room Air 98.3 EKG EKG [] Radiology/Procedures Radiology/Procedures Indication: abscess Procedure: The patient was positioned appropriately. Local anesthesia was 1% lidocaine 5ml . An incision was then made over the apex of the two lesions that were draining pus and a small amount of bloody pus material was expressed. There was no tunneling of the wounds for packing to be placed. The patient tolerated the procedure well. Complications: none.[] Course & Med Decision Making Course & Med Decision Making Pertinent Labs and Imaging studies reviewed. (See chart for details) [] Staff Physician Addendum: I was working in the ER during the course of this patient's visit. I was available for consultation as needed, i briefly eval pt and recommended i and d [place] Disclaimer Mahesh Disclaimer This electronic medical record was generated, in whole or in part, using a voice recognition dictation system. Departure Departure Impression: Primary Impression: Hidradenitis suppurativa of right axilla Disposition: HOME, SELF-CARE Condition: STABLE Referrals: NO PCP (PCP) MO RIDLEY MD Patient Instructions: Hidradenitis Suppurativa, Sweat Gland Abscess Additional Instructions: Fill the prescriptions and use them as directed. Follow-up with Dr. Ridley for further evaluation and treatment of this condition. Return to the ER for symptoms worsen. Scripts Doxycycline Hyclate (DOXYCYCLINE HYCLATE) 100 Mg Tablet 1 TAB PO BID, #14 TAB 0 Refills Prov: NICOLE DAWKINS ENERGY CONSERVATION REPRESENTATIVE 02/12/18 Hydrocodone Bit/Acetaminophen (HYDROCODONE-APAP 5-325 ) 1 Tab Tablet 1 TAB PO PRN Q6HRS PRN for PAIN for 2 Days, #8 TAB 0 Refills Prov: NICOLE DAWKINS ENERGY CONSERVATION REPRESENTATIVE 02/12/18 NICOLE DAWKINS ENERGY CONSERVATION REPRESENTATIVE Feb 12, 2018 19:55 AMANDA MENSAH MD Feb 13, 2018 03:07
== END 2018-02-12 20:20 | disposition home or self-care (01) ==
LOC: ER 17:06
DX: L73.2 Hidradenitis suppurativa (principal); Z91.041 Radiographic dye allergy status
CPT/HCPCS: 10060; 99283